=== PATIENT | male | born 1960 | race Caucasian/White ===

== ENCOUNTER 2023-02-13 23:19 | Inpatient (IN) ==
--- NOTE | 2023-02-13 23:26 | Emergency Department Note ---
Impression & Plan Acute non-ST elevation myocardial infarction (NSTEMI) ADMIT ED Provider Note HPI: The patient is a 63-year-old gentleman with history of metastatic prostate cancer, not currently on any chemo or radiation therapy, DNR/DNI CODE STATUS, presents the emergency department with a chief complaint of chest pain. Patient states about 45 minutes prior to arrival he developed substernal chest pain that was relatively severe. Patient arrives via EMS. EKG in the field showed some ST depressions in the lateral leads. Arrival here to the ED the patient is alert, states his chest pain is much improved from previous. Patient is otherwise hemodynamically stable and saturating well on room air on arrival. ROS: - Per HPI *Outpatient medications and allergy history reviewed. *Pertinent external medical records reviewed. PE: General: Alert frail-appearing, cachectic, no acute distress HEENT: Normocephalic, trachea midline Eyes: Extraocular eye movement is intact, no scleral erythema Pulmonary: Clear to auscultation bilaterally, no wheezing Cardio: Regular rate and rhythm GI: Abdomen is soft to palpation : No suprapubic tenderness, Roldan catheter in place MSK: No evidence of trauma or malformation of the extremities, no edema Skin: No evidence of rash Neuro: Alert, no focal deficits Psychiatric: Cooperative phototypesetting equipment monitor: (As interpreted by myself): - An order was placed for continuous cardiac monitoring - Patient was noted to be in sinus rhythm with a rate of 105 EKG #1: (As interpreted by myself): Rate: 124 Rhythm: Sinus tachycardia Intervals: Within normal limits ST changes: No ST elevation, ST depression in lateral leads noted V3 through V6 Time: 2321 EKG #2: (As interpreted by myself): Rate: 109 Rhythm: Sinus tachycardia Intervals: Within normal limits ST changes: No ST elevation, ST depression in the lateral leads noted V3 through V6 slightly improved from previous Time: 2349 Interventions provided in ED: -IV morphine, IV Dilaudid, packed red blood cell transfusion ordered, platelet transfusion ordered, aspirin given in the field via EMS Differential Diagnosis: Bone marrow suppression secondary to metastatic prostate cancer, acute coronary syndrome, pulmonary embolism, pneumothorax, body pain secondary to metastatic disease to the bone, amongst other potential pathologies. Medical Decision Making: Patient presented to the emergency department the chief complaint of chest pain. This is in the setting of underlying metastatic prostate cancer, patient states he is currently on oral morphine at home for pain. [place] Follows locally with a PCP. Patient states that he declined to have any radiation or chemotherapy performed for his prostate cancer and currently is not under any therapy. He states he is DNR/DNI CODE STATUS. EKG in the field showed evidence of some lateral depressions in leads V3 through V6, chest x-ray per my interpretation does not show any obvious widened mediastinum, no pneumothorax. I did discuss the patient's presentation shortly after arrival with on-call interventional cardiology, Dr. Matias, as the patient's symptoms are much improved from previous Dr. Matias recommends initiating heparin drip which was initially ordered. Admission to the hospital and maintaining the patient on panel monitor, repeat EKGs as needed if the patient develops any chest pain and plan will be for cardiology to evaluate the patient in the morning for diagnostic catheterization. I did discuss this with the patient and he is in agreement. Repeat EKG was obtained when the patient was chest pain-free at 2349, this shows improvement in previously noted ST depressions in leads V3 through V6. Troponin did return elevated at 186. Patient complained of some pain in his right elbow, states this is a chronic pain pattern for him. This is why he is on morphine at home. He was given morphine here in the ED and eventually dose of Dilaudid. He states the pain is not in his chest, states it was in his right elbow. X-ray imaging per my interpretation of the right elbow does not show any evidence of any fracture or dislocation. Patient's friend later arrives at the bedside, states that the patient has been suffering from various musculoskeletal pain patterns including in his chest now for several weeks. Patient's lab work unfortunately does show multiple other abnormalities, there is a leukocytosis of 13,000, hemoglobin is low at 5.4, platelet count is also low at 19, patient's urinalysis shows evidence of infection, he was started on IV ceftriaxone and blood cultures were drawn in the ED. Alk phos is also elevated likely consistent with the patient's metastatic disease. Patient was ordered 2 units packed red blood cells as well as platelets for transfusion. Heparin drip was stopped once the hemoglobin result came back. I suspect this is likely related to his cancer as the patient denies any recent bleeding aside from some mild epistaxis. Denies any blood per rectum. Denies any hematemesis. Occult stool test was performed at the bedside and is negative. Patient will be admitted to the hospitalist service with cardiology on consultation. Case was discussed with the on-call hospitalist, Dr. Medina. He was given heparin bolus here in the ED but drip was held following results of hemoglobin and platelet count. Packed red blood cells and platelets ordered and pending transfusion at the time of admission. Patient is in agreement to the above plan he was placed for admission in stable condition. Consultants: Interventional cardiology, Dr. Matias Disposition discussion held by myself with: Patient and friend at the bedside * CRITICAL CARE TIME: ( 65 ) minutes -Management of patient with anemia with hemoglobin less than 7.0 requiring packed red blood cell transfusion in the setting of endorgan damage/ischemia with elevated troponin, I spent at the bedside, discussion with other physicians including interventional cardiology, discussion with hospitalist service and arrangement of admission CODE STATUS: DNR/DNI per discussion with patient. Diagnosis: 1. Non-ST elevation myocardial infarction, acute 2. Anemia, acute 3. Thrombocytopenia, acute 4. Leukocytosis, acute 5. Hyponatremia, mild 6. Metastatic prostate cancer 7. Urinary tract infection, catheter associated Disposition: Admission Clayton Browning DO Emergency Medicine Past Med/Surg History Medical History (Updated 02/14/23 @ 01:57 by Clayton Browning DO) Chronic indwelling Roldan catheter History of Guillain-Thornton syndrome OCCURED SEVERAL YEARS AGO DURING THE TIME THAT PATIENT HAD RESIDED IN [facility]. PT STATES THE EXACT ETIOLOGY IS UNKNOWN BUT BELIEVES IT WAS SECONDARY TO A VIRUS HE HAD JUST PRIOR. PT STATES NO RESIDUAL EFFECTS AT THIS TIME. Surgical History History of surgery PREVIOUS CYST EXCISION History of vasectomy Family History (Updated 01/01/23 @ 09:50 by Irish Barron) Denies family history of Ovarian cancer Prostate cancer Myocardial infarction Breast cancer Lung cancer Colorectal cancer Social History (Updated 01/24/23 @ 12:50 by Deborah Robins LPN) Smoking Status: Former smoker Age Started Using Tobacco: 19; Age Quit Using Tobacco: 39; packs per day: 1; Cigarettes Per Day: 0; Second Hand Exposure: No; Hx Alcohol Use: Yes Alcohol type: beer Hx Substance Use: No Preferred Language: Tajik Communication Ability: Effective Visual Impairment: No Limitations Hearing Ability: Normal Coremaker Bench Required: No Beliefs That Will Affect Care: None marital status: Current Living Situation: Alone current occupational status: retired How many Children do You have: 0 Feels Safe at Home: Yes Physical Activity Frequency: Does not Exercise Seatbelt Use: always Sunscreen Use: Yes Assistive Devices: None Allergies Allergies Allergy/AdvReac Type Severity Reaction Status Date / Time oxycodone [From OxyContin] AdvReac Verified 01/24/23 12:46 Home Meds Home Medications Medication Instructions Recorded Confirmed fentanyl 100 mcg/hr transdermal 1 patch transdermal Q72H 01/01/23 02/13/23 patch buspirone 5 mg tablet 5 mg PO BID 01/24/23 02/13/23 acetaminophen 650 mg rectal 650 mg LA Q4 PRN Fever Or Pain 02/13/23 02/13/23 suppository dexamethasone 2 mg tablet 2 mg PO UD 02/13/23 02/13/23 haloperidol lactate 2 mg/mL oral 1 mg PO Q4 PRN 02/13/23 02/13/23 concentrate nausea/vomiting/agitation hydrocodone 7.5 mg-acetaminophen 1 tab PO Q6 PRN Pain 02/13/23 02/13/23 325 mg tablet hyoscyamine sulfate 0.125 mg tablet 0.125 mg sublingual Q4 PRN 02/13/23 02/13/23 terminal secretions lorazepam 1 mg tablet 0.5 mg PO Q4 PRN 02/13/23 02/13/23 restlessness/insomnia lorazepam 1 mg tablet 2 mg sublingual .Q15 MIN PRN 02/13/23 02/13/23 Seizures morphine concentrate 100 mg/5 mL 10 mg PO . EVERY 1 HOUR PRN 02/13/23 02/13/23 (20 mg/mL) oral solution pain/sob promethazine 12.5 mg tablet 12.5 mg PO Q8 PRN Nausea 02/13/23 02/13/23 Previous Rx's Medication Instructions Recorded dronabinol 2.5 mg capsule (Marinol) 2.5 mg PO BID 30 days #60 caps 01/24/23 Results & Data (ED) Vital Signs Vital Signs - 24 hr 02/13/23 23:23 02/13/23 23:27 02/13/23 23:24 Temperature Temperature Source Oral Pulse Rate 122 H 120 H Pulse Rate [Right] Respiratory Rate 18 Respiratory Effort / Characteristics Non-Labored Spontaneous Respiratory Depth Normal Blood Pressure [Right Arm] Blood Pressure Mean [Right Arm] Blood Pressure Position Sitting Pulse Oximetry 98 96 Oxygen Delivery Method Room Air Room Air Sepsis Recent Fever Within 48 Hours No Sepsis New/Unexplained Change in Mental Status N/A Sepsis Action Taken by Nursing No Action Required 02/13/23 23:35 02/14/23 00:28 Temperature 37.9 C H Temperature Source Oral Pulse Rate Pulse Rate [Right] 113 H 112 H Respiratory Rate 18 18 Respiratory Effort / Characteristics Non-Labored Spontaneous Non-Labored Spontaneous Respiratory Depth Normal Normal Blood Pressure [Right Arm] 139/71 124/60 Blood Pressure Mean [Right Arm] 93 81 Blood Pressure Position Pulse Oximetry 99 98 Oxygen Delivery Method Room Air Room Air Sepsis Recent Fever Within 48 Hours Sepsis New/Unexplained Change in Mental Status Sepsis Action Taken by Nursing Laboratory Data 02/13/23 23:30 02/13/23 23:30 Lab Results 02/13/23 02/13/23 02/13/23 Range/Units 23:30 23:30 23:32 WBC 13.11 H (4.8-10.8) K/ul RBC 1.82 L (4.70-6.10) M/uL Hgb 5.4 L* (14.0-18.0) g/dl Hct 16.6 L* (42.0-52.0) % MCV 91.2 (80.0-100.0) fL MCH 29.7 (25.0-34.0) pg MCHC 32.5 (32.0-36.0) g/dL RDW Std Deviation 60.6 H (36.4-46.3) fL RDW Coeff of Moraima 18.6 H (11.5-14.5) % Plt Count 19 L* (130-400) K/uL Absolute Nucleated RBC 2.84 H (0-0.12) K/uL Nucleated RBC % (auto) 21.7 % Neutrophils % (Manual) 57 % Lymphocytes % (Manual) 32 % Monocytes % (Manual) 3 % Eosinophils % (Manual) 1 % Metamyelocytes % (Man) 3 % Myelocytes % (Man) 5 % Neutrophils # (Manual) 7.47 H (1.40-6.50) K/uL Total Absolute Neuts 7.47 H (1.4-6.5) K/uL Lymphocytes # (Manual) 4.20 H (1.2-3.4) K/uL Total Abs Lymphocytes 4.20 H (1.2-3.4) K/uL Monocytes # (Manual) 0.39 (0.11-0.59) K/uL Eosinophils # (Manual) 0.13 (0-0.50) K/uL Metamyelocytes # (Man) 0.39 H (0-0) K/uL Myelocytes # (Manual) 0.66 H (0-0) K/uL Polychromasia 1+ Tear Drop Cells 1+ PT (9.0-12.0) Seconds INR (0.9-1.1) APTT (21.0-31.0) Seconds PTT Ratio Sodium 130 L (136-145) mmol/L Potassium 3.6 (3.5-5.1) mmol/L Chloride 96 L (98-107) mmol/L Carbon Dioxide 22 (21-32) mmol/L Anion Gap 12 H (3-11) BUN 31 H (6-23) mg/dl Creatinine 1.25 (0.6-1.4) mg/dl Est Cr Clr Drug Dosing 69.4 ml/min Est GFR ( Amer) 70.1 ml/min Est GFR (Non-Af Amer) 60.5 ml/min BUN/Creatinine Ratio 24.8 H (10-20) Glucose 172 H (70-99(Fasting)) mg/dl Calcium 9.4 (8.6-10.3) mg/dl Total Bilirubin 1.5 H (0.2-1.0) mg/dl AST 33 (13-39) U/L ALT 10 (7-52) U/L Alkaline Phosphatase 962 H (34-104) U/L Troponin I High Sens 186.5 H* (0-20) pg/ml Total Protein 6.3 (6.0-8.3) gm/dl Albumin 3.5 (3.4-5.0) gm/dl Globulin 2.8 (2.5-4.0) gm/dl Albumin/Globulin Ratio 1.3 (0.9-2) Lipase 47 (11-82) U/L Urine Color Yellow Urine Appearance Turbid A (Clear) Urine pH 5.0 (4.5-7.5) Ur Specific Rule 1.014 (1.000-1.030) Urine Protein 2+ H (Negative) Urine Glucose (UA) Negative (Negative) Urine Ketones Negative (Negative) Urine Blood 3+ H (Negative) Urine Nitrite Positive A (Negative) Urine Bilirubin Negative (Negative) Urine Urobilinogen Negative (Negative) Ur Leukocyte Esterase 2+ H (Negative) Urine WBC (Auto) >30 H (0-5) /hpf Urine RBC (Auto) 5-10 H (0-4) /hpf U Hyaline Cast (Auto) 1-5 (0-5) /lpf U Epithel Cells (Auto) 0-5 (0-5) /lpf Urine Bacteria (Auto) 3+ H (Negative) Urine Crystals Not Reportable SARS-CoV-2, RNA, NAAT (NEGATIVE) Blood Type Blood Type Recheck Antibody Screen Crossmatch 02/13/23 02/13/23 02/14/23 Range/Units 23:32 Unknown 00:05 WBC (4.8-10.8) K/ul RBC (4.70-6.10) M/uL Hgb (14.0-18.0) g/dl Hct (42.0-52.0) % MCV (80.0-100.0) fL MCH (25.0-34.0) pg MCHC (32.0-36.0) g/dL RDW Std Deviation (36.4-46.3) fL RDW Coeff of Moraima (11.5-14.5) % Plt Count (130-400) K/uL Absolute Nucleated RBC (0-0.12) K/uL Nucleated RBC % (auto) % Neutrophils % (Manual) % Lymphocytes % (Manual) % Monocytes % (Manual) % Eosinophils % (Manual) % Metamyelocytes % (Man) % Myelocytes % (Man) % Neutrophils # (Manual) (1.40-6.50) K/uL Total Absolute Neuts (1.4-6.5) K/uL Lymphocytes # (Manual) (1.2-3.4) K/uL Total Abs Lymphocytes (1.2-3.4) K/uL Monocytes # (Manual) (0.11-0.59) K/uL Eosinophils # (Manual) (0-0.50) K/uL Metamyelocytes # (Man) (0-0) K/uL Myelocytes # (Manual) (0-0) K/uL Polychromasia Tear Drop Cells PT 13.9 H (9.0-12.0) Seconds INR 1.3 H (0.9-1.1) APTT 24.0 (21.0-31.0) Seconds PTT Ratio 0.9 Sodium (136-145) mmol/L Potassium (3.5-5.1) mmol/L Chloride (98-107) mmol/L Carbon Dioxide (21-32) mmol/L Anion Gap (3-11) BUN (6-23) mg/dl Creatinine (0.6-1.4) mg/dl Est Cr Clr Drug Dosing ml/min Est GFR ( Amer) ml/min Est GFR (Non-Af Amer) ml/min BUN/Creatinine Ratio (10-20) Glucose (70-99(Fasting)) mg/dl Calcium (8.6-10.3) mg/dl Total Bilirubin (0.2-1.0) mg/dl AST (13-39) U/L ALT (7-52) U/L Alkaline Phosphatase (34-104) U/L Troponin I High Sens (0-20) pg/ml Total Protein (6.0-8.3) gm/dl Albumin (3.4-5.0) gm/dl Globulin (2.5-4.0) gm/dl Albumin/Globulin Ratio (0.9-2) Lipase (11-82) U/L Urine Color Urine Appearance (Clear) Urine pH (4.5-7.5) Ur Specific Rule (1.000-1.030) Urine Protein (Negative) Urine Glucose (UA) (Negative) Urine Ketones (Negative) Urine Blood (Negative) Urine Nitrite (Negative) Urine Bilirubin (Negative) Urine Urobilinogen (Negative) Ur Leukocyte Esterase (Negative) Urine WBC (Auto) (0-5) /hpf Urine RBC (Auto) (0-4) /hpf U Hyaline Cast (Auto) (0-5) /lpf U Epithel Cells (Auto) (0-5) /lpf Urine Bacteria (Auto) (Negative) Urine Crystals SARS-CoV-2, RNA, NAAT NEGATIVE (NEGATIVE) Blood Type A Positive Blood Type Recheck Antibody Screen NEGATIVE Crossmatch See Detail 02/14/23 Range/Units 01:03 WBC (4.8-10.8) K/ul RBC (4.70-6.10) M/uL Hgb (14.0-18.0) g/dl Hct (42.0-52.0) % MCV (80.0-100.0) fL MCH (25.0-34.0) pg MCHC (32.0-36.0) g/dL RDW Std Deviation (36.4-46.3) fL RDW Coeff of Moraima (11.5-14.5) % Plt Count (130-400) K/uL Absolute Nucleated RBC (0-0.12) K/uL Nucleated RBC % (auto) % Neutrophils % (Manual) % Lymphocytes % (Manual) % Monocytes % (Manual) % Eosinophils % (Manual) % Metamyelocytes % (Man) % Myelocytes % (Man) % Neutrophils # (Manual) (1.40-6.50) K/uL Total Absolute Neuts (1.4-6.5) K/uL Lymphocytes # (Manual) (1.2-3.4) K/uL Total Abs Lymphocytes (1.2-3.4) K/uL Monocytes # (Manual) (0.11-0.59) K/uL Eosinophils # (Manual) (0-0.50) K/uL Metamyelocytes # (Man) (0-0) K/uL Myelocytes # (Manual) (0-0) K/uL Polychromasia Tear Drop Cells PT (9.0-12.0) Seconds INR (0.9-1.1) APTT (21.0-31.0) Seconds PTT Ratio Sodium (136-145) mmol/L Potassium (3.5-5.1) mmol/L Chloride (98-107) mmol/L Carbon Dioxide (21-32) mmol/L Anion Gap (3-11) BUN (6-23) mg/dl Creatinine (0.6-1.4) mg/dl Est Cr Clr Drug Dosing ml/min Est GFR ( Amer) ml/min Est GFR (Non-Af Amer) ml/min BUN/Creatinine Ratio (10-20) Glucose (70-99(Fasting)) mg/dl Calcium (8.6-10.3) mg/dl Total Bilirubin (0.2-1.0) mg/dl AST (13-39) U/L ALT (7-52) U/L Alkaline Phosphatase (34-104) U/L Troponin I High Sens (0-20) pg/ml Total Protein (6.0-8.3) gm/dl Albumin (3.4-5.0) gm/dl Globulin (2.5-4.0) gm/dl Albumin/Globulin Ratio (0.9-2) Lipase (11-82) U/L Urine Color Urine Appearance (Clear) Urine pH (4.5-7.5) Ur Specific Rule (1.000-1.030) Urine Protein (Negative) Urine Glucose (UA) (Negative) Urine Ketones (Negative) Urine Blood (Negative) Urine Nitrite (Negative) Urine Bilirubin (Negative) Urine Urobilinogen (Negative) Ur Leukocyte Esterase (Negative) Urine WBC (Auto) (0-5) /hpf Urine RBC (Auto) (0-4) /hpf U Hyaline Cast (Auto) (0-5) /lpf U Epithel Cells (Auto) (0-5) /lpf Urine Bacteria (Auto) (Negative) Urine Crystals SARS-CoV-2, RNA, NAAT (NEGATIVE) Blood Type Blood Type Recheck A Positive Antibody Screen Crossmatch Administered Medications Discontinued Medications Heparin Sodium (Porcine) (Heparin Sod (Porcine) 1000 Unit/Ml) 5,000 units IV NOW ONE Stop: 02/14/23 00:31 Last Admin: 02/14/23 00:23 Dose: 5,000 units Documented By: CARLOS Co-signed By: LILIAN Heparin Sodium/Dextrose (Heparin Iv Adult Wt-Based Standard With Bolus Protocol) 1 each IV NOW STA; Protocol Stop: 02/14/23 00:06 Last Admin: 02/14/23 00:23 Dose: 1 each Documented By: CARLOS Hydromorphone HCl (Hydromorphone Inj 0.5 Mg/0.5 Ml Syr) 0.5 mg IV NOW STA Stop: 02/14/23 00:36 Last Admin: 02/14/23 00:42 Dose: 0.5 mg Documented By: CARLOS Sodium Chloride (Nss) 500 mls @ 999 mls/hr IV .Q31M ONE Stop: 02/13/23 23:58 Last Infusion: 02/14/23 00:04 Dose: 0 mls/hr Documented By: Admin: 02/13/23 23:33 Dose: 999 mls/hr Documented By: CARLOS Ceftriaxone Sodium (Rocephin) 2,000 mg in 70 mls @ 140 mls/hr IV NOW STA Stop: 02/14/23 00:33 Last Infusion: 02/14/23 00:42 Dose: 0 mls/hr Documented By: Admin: 02/14/23 00:18 Dose: 140 mls/hr Documented By: CARLOS Heparin Sodium/Dextrose (Heparin Sodium/Dextrose) 25,000 units in 500 mls @ 30 mls/hr IV .[id number] [facility]; Protocol Stop: 03/16/23 00:29 Last Titration: 02/14/23 00:51 Dose: 0 units/hr, 0 mls/hr Documented By: CARLOS Co-signed By: GRAYSON Admin: 02/14/23 00:23 Dose: 1,500 units/hr, 30 mls/hr Documented By: CARLOS Co-signed By: LILIAN Sodium Chloride (Nss) 500 mls @ 999 mls/hr IV .Q31M ONE Stop: 02/14/23 01:37 Last Infusion: 02/14/23 01:44 Dose: 0 mls/hr Documented By: Admin: 02/14/23 01:18 Dose: 999 mls/hr Documented By: GRAYSON Morphine Sulfate (Morphine Sulfate 4 Mg/Ml 1 Ml Carp\Vial) 4 mg IV NOW STA Stop: 02/13/23 23:28 Last Admin: 02/13/23 23:33 Dose: 4 mg Documented By: CARLOS Ondansetron HCl (Ondansetron Inj 2 Mg/Ml 2 Ml Vial) 4 mg IV NOW STA Stop: 02/13/23 23:28 Last Admin: 02/13/23 23:33 Dose: 4 mg Documented By: CARLOS Discharge Plan Visit Data Chief Complaint: Chest Pain ED Provider: Clayton Browning Discharge Problem: Acute non-ST elevation myocardial infarction (NSTEMI) Patient Disposition: Admitted As Inpatient Discharge Instructions Interventions: ED Discharge Assessment Last Done: 02/14/23 01:48
[2023-02-13] MEDS ORDERED: ONDANSETRON INJ 2 MG/ML 2 ML VIAL IV STA (23:27)
[2023-02-13] MEDS ORDERED: MoRPHine SULFATE 4 MG/ML 1 ML CARP\\VIAL IV STA (23:27)
[2023-02-13] MEDS ORDERED: SODIUM CHLORIDE 0.9% 500 ML IV ONE (23:28)
[2023-02-14 00:01] LABS: Appearance Urine Turbid (Clear); Bacteria Urine Automated 3+ (Negative); Bilirubin Urine Negative (Negative); Blood Urine 3+ (Negative); Color Urine Yellow; Epithelial Cell Urine Auto 0-5 /lpf (0-5); Glucose Urine UA Negative (Negative); Ketones Urine Negative (Negative); Leukocyte Esterase Urine 2+ (Negative); Nitrite Urine Positive (Negative); Protein Urine 2+ (Negative); Specific Gravity Urine 1.014 (1.000-1.030); Urobilinogen Urine Negative (Negative); WBC Urine Automated >30 /hpf (0-5)
[2023-02-14] MEDS ORDERED: cefTRIAXone SODIUM 2,000 MG/70 ML BAG IV STA (00:04)
[2023-02-14] MEDS ORDERED: Heparin IV Adult Wt-Based Standard WITH Bolus Protocol IV STA (00:05)
[2023-02-14 00:14] LABS: Albumin Globulin Ratio 1.3 (0.9-2); Albumin Level 3.5 gm/dl (3.4-5.0); BUN Creatinine Ratio 24.8 (10-20); Bilirubin,Total 1.5 mg/dl (0.2-1.0); Calcium 9.4 mg/dl (8.6-10.3); Creatinine Clr Calc Pharmacy 69.4 ml/min; Est GFR (African American) 70.1 ml/min; Est GFR (Non-African American) 60.5 ml/min; Globulin 2.8 gm/dl (2.5-4.0); Potassium 3.6 mmol/L (3.5-5.1); Total Protein 6.3 gm/dl (6.0-8.3)
[2023-02-14] MEDS ORDERED: HEPARIN SOD (PORCINE) 1000 UNIT/ML IV ONE ×2 (00:20→00:30)
[2023-02-14] MEDS ORDERED: HEPARIN SODIUM/DEXTROSE 25,000 UNITS/500 ML BAG IV SCH (00:30)
[2023-02-14 00:32] LABS: Troponin I High Sensitivity 186.5 pg/ml (0-20)
[2023-02-14] MEDS ORDERED: HYDROmorphone INJ 0.5 MG/0.5 ML SYR IV STA (00:35)
[2023-02-14 00:40] LABS: Hematocrit (blood only) 16.6 % (42.0-52.0); Hemoglobin 5.4 g/dl (14.0-18.0); Mean Corpuscular Hemoglobin 29.7 pg (25.0-34.0); Mean Corpuscular Hgb Conc 32.5 g/dL (32.0-36.0); Mean Corpuscular Volume 91.2 fL (80.0-100.0); Nucleated RBC # (auto) 2.84 K/uL (0-0.12); Nucleated RBC % (auto) 21.7 %; Platelet Count 19 K/uL (130-400); RDW Coefficient of Variation 18.6 % (11.5-14.5); RDW Standard Deviation 60.6 fL (36.4-46.3); Red Blood Count 1.82 M/uL (4.70-6.10); White Blood Count 13.11 K/ul (4.8-10.8)
[2023-02-14] MEDS ORDERED: SODIUM CHLORIDE 0.9% 250 ML IV PRN ×2 (00:41→16:53)
[2023-02-14 00:47] LABS: INR 1.3 (0.9-1.1); Partial Thromboplastin Ratio 0.9; Prothrombin Time 13.9 Seconds (9.0-12.0)
[2023-02-14 00:56] LABS: ANC (manual) 7.47 K/uL (1.4-6.5); Eosinophils # (manual) 0.13 K/uL (0-0.50); Eosinophils % (manual) 1 %; Lymphocytes % (manual) 32 %; Metamyelocytes # (manual) 0.39 K/uL (0-0); Metamyelocytes % (manual) 3 %; Monocytes # (manual) 0.39 K/uL (0.11-0.59); Monocytes % (manual) 3 %; Myelocytes # (manual) 0.66 K/uL (0-0); Myelocytes % (manual) 5 %; Neutrophils # (manual) 7.47 K/uL (1.40-6.50); Neutrophils % (manual) 57 %; Polychromasia 1+; Tear Drop Cells 1+
[2023-02-14] MEDS ORDERED: SODIUM CHLORIDE 0.9% 500 ML IV ONE (01:07)
--- NOTE | 2023-02-14 01:29 | History & Physical Report ---
Date of Service February 14, 2023 Assessment & Plan (1) Symptomatic anemia: (2) NSTEMI (non-ST elevated myocardial infarction): (3) Urinary obstruction: (4) Chronic indwelling Roldan catheter: (5) Anxiety: (6) Prostate cancer metastatic to multiple sites: (7) Hyperglycemia: (8) Thrombocytopenia: Plan Symptomatic anemia- Hemoccult negative Likely secondary to chemotherapy To receive 2 units PRBCs from the ED Repeat laboratories 1 hour after that Likely causing supply demand issues with leading to an NSTEMI NSTEMI- The patient will be admitted to telemetry for serial cardiac enzymes, serial EKG's, cardiac rhythm monitoring and a 2-D echocardiogram with Dopplers. Troponin 186.5 on admission Primary treatment is to transfuse his hemoglobin of 5.4 Thrombocytopenia- Platelets 19 on admission We will transfuse 1 unit of platelets after hemoglobin 2 units are completed Follow serial laboratories Not a candidate for anticoagulation for above NSTEMI at this time Urinary tract infection/chronic indwelling Roldan catheter/bladder outlet obstruction- Follow urine culture and sensitivity Continue ceftriaxone 2 g IV daily begun in the ED Metastatic prostate cancer to multiple sites- Following with [facility] hospice at this time Decreased appetite- Continue Marinol History of Present Illness Chief Complaint: The patient presents to the emergency department with complaint of substernal chest pain that began about 45 minutes prior to arrival to the emergency department Primary Care Provider: Sal Hill DO The patient is a 63-year-old male with a past medical history including metastatic prostate cancer, anxiety, chronic pain syndrome, agitation, chronic indwelling Roldan catheter due to urinary obstruction and decreased appetite. Patient reports that he had intermittent right elbow pain for months, and has had a negative work-up to this point. The substernal chest pain he developed just prior to arrival, was was severe, and did get significant improvement with treatment in ED. Significant laboratories: WBC 13.1, hemoglobin 5.4, hematocrit 16.6, platelets 19, sodium 130, creatinine 1.25, glucose 172, INR 1.3, total bilirubin 1.5, troponin 186.5, alkaline phosphatase 962. Urinalysis was positive for infection COVID-19 testing was negative Hemoccult stools negative in the ED Allergies Allergy/AdvReac Type Severity Reaction Status Date / Time oxycodone [From OxyContin] AdvReac Verified 01/24/23 12:46 Home Medications Medication Instructions Recorded Confirmed Type fentanyl 100 mcg/hr transdermal 1 patch transdermal Q72H 01/01/23 02/13/23 History patch buspirone 5 mg tablet 5 mg PO BID 01/24/23 02/13/23 History dronabinol 2.5 mg capsule (Marinol) 2.5 mg PO BID 30 days #60 caps 01/24/23 02/13/23 Rx acetaminophen 650 mg rectal 650 mg HI Q4 PRN Fever Or Pain 02/13/23 02/13/23 History suppository dexamethasone 2 mg tablet 2 mg PO UD 02/13/23 02/13/23 History haloperidol lactate 2 mg/mL oral 1 mg PO Q4 PRN 02/13/23 02/13/23 History concentrate nausea/vomiting/agitation hydrocodone 7.5 mg-acetaminophen 1 tab PO Q6 PRN Pain 02/13/23 02/13/23 History 325 mg tablet hyoscyamine sulfate 0.125 mg tablet 0.125 mg sublingual Q4 PRN 02/13/23 02/13/23 History terminal secretions lorazepam 1 mg tablet 0.5 mg PO Q4 PRN 02/13/23 02/13/23 History restlessness/insomnia lorazepam 1 mg tablet 2 mg sublingual .Q15 MIN PRN 02/13/23 02/13/23 History Seizures morphine concentrate 100 mg/5 mL 10 mg PO . EVERY 1 HOUR PRN 02/13/23 02/13/23 History (20 mg/mL) oral solution pain/sob promethazine 12.5 mg tablet 12.5 mg PO Q8 PRN Nausea 02/13/23 02/13/23 History Past Med/Surg History Medical History (Updated 02/14/23 @ 01:47 by Sai Mcneill MD) Chronic indwelling Roldan catheter History of Guillain-Rosston syndrome OCCURED SEVERAL YEARS AGO DURING THE TIME THAT PATIENT HAD RESIDED IN [facility]. PT STATES THE EXACT ETIOLOGY IS UNKNOWN BUT BELIEVES IT WAS SECONDARY TO A VIRUS HE HAD JUST PRIOR. PT STATES NO RESIDUAL EFFECTS AT THIS TIME. Surgical History History of surgery PREVIOUS CYST EXCISION History of vasectomy Family History (Updated 01/01/23 @ 09:50 by Irish Barron) Denies family history of Ovarian cancer Prostate cancer Myocardial infarction Breast cancer Lung cancer Colorectal cancer Social History (Updated 01/24/23 @ 12:50 by Deborah Robins LPN) Smoking Status: Former smoker Age Started Using Tobacco: 19; Age Quit Using Tobacco: 39; packs per day: 1; Cigarettes Per Day: 0; Second Hand Exposure: No; Hx Alcohol Use: Yes Alcohol type: beer Hx Substance Use: No Preferred Language: [place] Communication Ability: Effective Visual Impairment: No Limitations Hearing Ability: Normal Collar Baster Required: No Beliefs That Will Affect Care: None marital status: Current Living Situation: Alone current occupational status: retired How many Children do You have: 0 Feels Safe at Home: Yes Physical Activity Frequency: Does not Exercise Seatbelt Use: always Sunscreen Use: Yes Assistive Devices: None Review of Systems Review of Systems: The patient denies palpitations, cough, lower extremity swelling, sore throat, fevers, chills, sweats, nausea, vomiting, diarrhea , constipation, abdominal pain, pelvic pain, blood in urine or stool, lightheadedness, dizziness, headache, memory loss, loss of consciousness, abnormal bruising or bleeding, focal weakness, numbness or tingling in arms or legs, generalized arthralgias or myalgias, back or neck pain, or night sweats. The review of systems is otherwise negative other than for that already noted above, and at least 10 systems have been reviewed. Physical Exam Physical Exam: The patient is awake, alert and oriented 3, well developed and well nourished, normocephalic and atraumatic, lying in bed and in no acute distress. HEENT--PERRL, EOMI, mucous membranes and oropharynx dry. Neck--supple. No JVD. No bruits. Thyroid normal, trachea midline, no ad enopathy. Heart--normal S1 and S2. No murmurs, rubs or gallops. Lungs--clear bilaterally, no respiratory distress, no accessory muscle use. Abdomen--normal bowel sounds and soft. Nontender. Nondistended Extremities--no cyanosis or clubbing. No edema. Dermatologic--normal skin turgor, normal color, no abnormal lymph nodes, no rash. Neurologic--cranial nerves II through XII grossly intact. Rheumatologic--normal range of motion. Psychiatric--normal affect. Results & Data Results & Data Vital Signs (Past 12 Hours) Vital Signs Temp Pulse Pulse Resp BP Pulse Ox O2 Del Method 02/14/23 00:28 112 H 18 124/60 98 Room Air 02/13/23 23:35 37.9 C H 113 H 18 139/71 99 Room Air 02/13/23 23:24 120 H 02/13/23 23:27 96 Room Air 02/13/23 23:23 122 H 18 98 Room Air Laboratory Results Laboratory Results WBC 13.11 K/ul (4.8-10.8) H 02/13/23 23:30 RBC 1.82 M/uL (4.70-6.10) L 02/13/23 23:30 Hgb 5.4 g/dl (14.0-18.0) L* 02/13/23 23:30 Hct 16.6 % (42.0-52.0) L* 02/13/23 23:30 MCV 91.2 fL (80.0-100.0) 02/13/23 23:30 MCH 29.7 pg (25.0-34.0) 02/13/23 23:30 MCHC 32.5 g/dL (32.0-36.0) 02/13/23 23:30 RDW Std Deviation 60.6 fL (36.4-46.3) H 02/13/23 23:30 RDW Coeff of Moraima 18.6 % (11.5-14.5) H 02/13/23 23:30 Plt Count 19 K/uL (130-400) L* 02/13/23 23:30 Absolute Nucleated RBC 2.84 K/uL (0-0.12) H 02/13/23 23:30 Nucleated RBC % (auto) 21.7 % 02/13/23 23:30 Neutrophils % (Manual) 57 % 02/13/23 23:30 Lymphocytes % (Manual) 32 % 02/13/23 23:30 Monocytes % (Manual) 3 % 02/13/23 23:30 Eosinophils % (Manual) 1 % 02/13/23 23:30 Metamyelocytes % (Man) 3 % 02/13/23 23:30 Myelocytes % (Man) 5 % 02/13/23 23:30 Neutrophils # (Manual) 7.47 K/uL (1.40-6.50) H 02/13/23 23:30 Total Absolute Neuts 7.47 K/uL (1.4-6.5) H 02/13/23 23:30 Lymphocytes # (Manual) 4.20 K/uL (1.2-3.4) H 02/13/23 23:30 Total Abs Lymphocytes 4.20 K/uL (1.2-3.4) H 02/13/23 23:30 Monocytes # (Manual) 0.39 K/uL (0.11-0.59) 02/13/23 23:30 Eosinophils # (Manual) 0.13 K/uL (0-0.50) 02/13/23 23:30 Metamyelocytes # (Man) 0.39 K/uL (0-0) H 02/13/23 23:30 Myelocytes # (Manual) 0.66 K/uL (0-0) H 02/13/23 23:30 Polychromasia 1+ 02/13/23 23:30 Tear Drop Cells 1+ 02/13/23 23:30 PT 13.9 Seconds (9.0-12.0) H 02/13/23 23:32 INR 1.3 (0.9-1.1) H 02/13/23 23:32 APTT 24.0 Seconds (21.0-31.0) 02/13/23 23:32 PTT Ratio 0.9 02/13/23 23:32 Sodium 130 mmol/L (136-145) L 02/13/23 23:30 Potassium 3.6 mmol/L (3.5-5.1) 02/13/23 23:30 Chloride 96 mmol/L (98-107) L 02/13/23 23:30 Carbon Dioxide 22 mmol/L (21-32) 02/13/23 23:30 Anion Gap 12 (3-11) H 02/13/23 23:30 BUN 31 mg/dl (6-23) H 02/13/23 23:30 Creatinine 1.25 mg/dl (0.6-1.4) 02/13/23 23:30 Est Cr Clr Drug Dosing 69.4 ml/min 02/13/23 23:30 Est GFR ( Amer) 70.1 ml/min 02/13/23 23:30 Est GFR (Non-Af Amer) 60.5 ml/min 02/13/23 23:30 BUN/Creatinine Ratio 24.8 (10-20) H 02/13/23 23:30 Glucose 172 mg/dl (70-99(Fasting)) H 02/13/23 23:30 Calcium 9.4 mg/dl (8.6-10.3) 02/13/23 23:30 Total Bilirubin 1.5 mg/dl (0.2-1.0) H 02/13/23 23:30 AST 33 U/L (13-39) 02/13/23 23:30 ALT 10 U/L (7-52) 02/13/23 23:30 Alkaline Phosphatase 962 U/L (34-104) H 02/13/23 23:30 Troponin I High Sens 186.5 pg/ml (0-20) H* 02/13/23 23: Total Protein 6.3 gm/dl (6.0-8.3) 02/13/23 23: Albumin 3.5 gm/dl (3.4-5.0) 02/13/23 23: Globulin 2.8 gm/dl (2.5-4.0) 02/13/23 23: Albumin/Globulin Ratio 1.3 (0.9-2) 02/13/23 23: Lipase 47 U/L (11-82) 02/13/23 23:30 Urine Color Yellow 02/13/23 23:32 Urine Appearance Turbid (Clear) A 02/13/23 23: Urine pH 5.0 (4.5-7.5) 02/13/23 23:32 Ur Specific [place] 1.014 (1.000-1.030) 02/13/23 23: Urine Protein 2+ (Negative) H 02/13/23 23:32 Urine Glucose (UA) Negative (Negative) 02/13/23 23: Urine Ketones Negative (Negative) 02/13/23 23: Urine Blood 3+ (Negative) H 02/13/23 23: Urine Nitrite Positive (Negative) A 02/13/23 23:32 Urine Bilirubin Negative (Negative) 02/13/23 23: Urine Urobilinogen Negative (Negative) 02/13/23 23:32 Ur Leukocyte Esterase 2+ (Negative) H 02/13/23 23:32 Urine WBC (Auto) >30 /hpf (0-5) H 02/13/23 23:32 Urine RBC (Auto) 5-10 /hpf (0-4) H 02/13/23 23:32 U Hyaline Cast (Auto) 1-5 /lpf (0-5) 02/13/23 23:32 U Epithel Cells (Auto) 0-5 /lpf (0-5) 02/13/23 23:32 Urine Bacteria (Auto) 3+ (Negative) H 02/13/23 23:32 Urine Crystals Not Reportable 02/13/23 23:32 SARS-CoV-2, RNA, NAAT NEGATIVE (NEGATIVE) 02/13/23 Unknown Blood Type A Positive 02/14/23 00:05 Blood Type Recheck A Positive 02/14/23 01:03 Antibody Screen NEGATIVE 02/14/23 00:05 Crossmatch See Detail 02/14/23 00:05 Code Status & VTE Plan Code Status DNR/DNI VTE Prophylaxis Plan VTE Prophylaxis will be ordered: Yes PG Care Time/CCT Total # of Minutes Spent Total Time Spent with Patient: Total time spent is greater than 50% in coordination of care (as documented) at patient's floor/unit and/or counseling patient: Coding Level of Care Code 84443 INT INP/OBS CARE 3/75MIN Diagnoses Symptomatic anemia D64.9 NSTEMI (non-ST elevated myocardial infarction) I21.4 Urinary obstruction N13.9 Chronic indwelling Roldan catheter Z97.8 Anxiety F41.9 Prostate cancer metastatic to multiple sites C61 Hyperglycemia R73.9 Thrombocytopenia D69.6
[2023-02-14] MEDS ORDERED: GLUCOSE 40% GEL 15 GM TUBE PO PRN (01:49)
[2023-02-14] MEDS ORDERED: DEXTROSE 50% 50 ML SYRINGE IV PRN (01:49)
[2023-02-14] MEDS ORDERED: LORazepam 1 MG TAB SL PRN (01:49)
[2023-02-14] MEDS ORDERED: GLUCAGON FOR INJ 1 MG VIAL SQ PRN (01:49)
[2023-02-14] MEDS ORDERED: ACETAMINOPHEN 325 MG TAB PO PRN (01:49)
[2023-02-14] MEDS ORDERED: HYDROCODONE/ACETAMINOPHEN 7.5/325MG TAB PO PRN (01:49)
[2023-02-14] MEDS ORDERED: PROMETHAZINE HCL 25 MG TAB PO PRN (01:49)
[2023-02-14] MEDS ORDERED: CARBOHYDRATES FOR HYPOGLYCEMIA PO PRN (01:49)
[2023-02-14] MEDS ORDERED: ONDANSETRON INJ 2 MG/ML 2 ML VIAL IV PRN (01:49)
[2023-02-14] MEDS ORDERED: HYOSCYAMINE SULFATE 0.125 MG TAB SL PRN (01:49)
[2023-02-14] MEDS ORDERED: GLUCOSE 10 TAB/TUBE PO PRN (01:49)
[2023-02-14] MEDS ORDERED: HALOPERIDOL ORAL SOLN 2 MG/ML PO PRN (01:56)
[2023-02-14] MEDS: MoRPHine SULFATE 10 MG/0.5 ML UDP PO PRN ×6 (03:38→23:09)
--- NOTE | 2023-02-14 07:15 | XRay Report ---
XR chest 1V portable CLINICAL HISTORY: Chest pain, nonspecific TECHNIQUE: Single frontal radiograph of the chest was obtained. Comparison: Comparison is made to chest radiograph 07/28/2015 FINDINGS: No lines and tubes are seen. The cardiomediastinal silhouette is normal. Faint bibasilar airspace opa cities are seen. No evidence of pleural effusion or pneumothorax. IMPRESSION: Faint bibasilar airspace opacities which may represent atelectasis, pneumonia, and/or aspiration. ACT 112: Negative or not required by law. Electronically signed by: Vidal Salguero M.D. 02/14/2023 7:13 AM
[2023-02-14] MEDS ORDERED: INSULIN ASPART PER UNIT CHARGE SC SCH (07:30)
--- NOTE | 2023-02-14 07:57 | XRay Report ---
XR elbow RT min 3V routine CLINICAL HISTORY: pain, no trauma TECHNIQUE: 3 views of the right elbow were obtained. Comparison: None available at the time of this dictation. FINDINGS: There is no evidence of an acute fracture. Degenerative changes are seen in the elbow joint. There is no prominence of the anterior or posterior fat pads to suggest an effusion. No soft tissue abnormali ty is seen. IMPRESSION: No evidence of acute osseous injury. ACT 112: Negative or not required by law. Electronically signed by: Vidal Salguero M.D. 02/14/2023 7:56 AM
[2023-02-14] MEDS ORDERED: CALCIUM CARBONATE 500 MG CHEWABLE TAB PO PRN (09:15)
[2023-02-14] MEDS: fentaNYL 100 MCG/HR TDSY TD SCH (09:24)
[2023-02-14] MEDS: busPIRone 5 MG TAB PO SCH ×2 (09:26→20:01)
[2023-02-14] MEDS: CHECK fentaNYL PATCH PLACEMENT SCH ×2 (09:26→15:34)
[2023-02-14 09:31] LABS: Estimated Average Glucose 111 mg/dl; Hemoglobin A1C 5.5 % (4.5-5.6)
--- NOTE | 2023-02-14 10:27 | Cardiology Consultation ---
Date of Consultation February 14, 2023 Assessment & Plan (1) NSTEMI (non-ST elevated myocardial infarction): (2) Chest pain: (3) Symptomatic anemia: Plan ASSESSMENT/PLAN: 1. NSTEMI: Elevated troponin likely due to demand ischemia in the setting of profound anemia. Chest pain concerning for angina. Given profound thrombocytopenia and anemia, recommend correcting blood counts. No aspirin due to thrombocytopenia. Risk factor modification considered, however given stage IV cancer (declines treatment) and hospice care, statin therapy not likely to add benefit. If has symptoms concerning for angina after her hemoglobin corrected, would consider beta-bo and/or nitrate therapy. He would like to pursue echo. Trend troponin until peak. No heparin gtt given anemia/thrombocytopenia and the fact that this does not likely represent acute coronary syndrome. Cannot exclude underlying CAD. 2. Chest pain: Concerning for angina in the setting of profound anemia. Addressing profound anemia will likely improve/resolve chest discomfort. 3. Anemia/thrombocytopenia: As per primary hospitalist service. 4. Metastatic prostate cancer: As per primary service. He acknowledges that he has declined further treatment and is on home hospice. 5. Disposition: Please call with any further questions or concerns. Patient care communicated with Dr. Ayala of the primary hospitalist service. Highly complex medical issues. Thank you for allowing me to participate in the care of your patient. Please call for any other questions or concerns. Sincerely, Charles Turner M.D. History of Present Illness Reason for Consultation: "CP, NSTEMI" Requesting Physician: Clayton Browning Attending Physician: Mandy Ayala MD History of Present Illness Mr. Martinez is a very pleasant 63-year-old gentleman with history significant for stage IV prostate adenocarcinoma on hospice and borderline diabetes. He was admitted on 02/14/2023 with chest discomfort, confusion, other chronic pain, and profound anemia with a hemoglobin of 5.4 and platelet count of 19,000. His initial high sensitivity troponin was 186. He has been experiencing left-sided chest discomfort intermittently for the past month. It occurs even at rest and typically resolves within 3 to 5 minutes of morphine, but on occasion spontaneously. He is on morphine at home for pathologic fractures involving his vertebrae and ribs. He has chronic right shoulder and right elbow pain. In the emergency department, he was noted to have anterior ST depressions initially which improved with repeat ECG. Chest pain has subsided and has not recurred since receiving some PRBC transfusion. With the chest discomfort, there is associated nausea and shortness of breath but no diaphoresis. Exercise tolerance has dwindled over the past few months. A friend was present at the bedside and states that he was confused for the past 4 to 5 days. Urine has been dark over the past month and his [place]. He has noted some blood in his stool and had epistaxis over the past month. Chronically, poor appetite with chronic nausea. He states that he is sedentary. He is receiving hospice care at home through [facility]. He recalls being diagnosed with borderline diabetes when he was seen by his PCP in [place] and was placed on metformin and a statin therapy. These medications were discontinued following biopsy and found to have metastatic cancer. His goal is to improve his quality of life. He would like to receive care while hospitalized, with the hope of being able to enjoy his life when discharged. He denies orthopnea, syncope, palpitations, edema. He recalls that his last set of labs prior to this hospital stay was in November in [place]. Review of systems: As above. Review of systems otherwise negative/unremarkable. Family history: No known premature CAD. Social history: Quit smoking at the age of 39 after approximately [id number]. Denies alcohol or drug abuse. . No children. Originally from [place] but has lived greater than 10 years in [place]. Recently moved to [place] in 2022. He is currently staying with an elderly friend (80s). A friend accompanied him at the bedside. Allergies Allergy/AdvReac Type Severity Reaction Status Date / Time oxycodone [From OxyContin] AdvReac Verified 01/24/23 12:46 Home Medications Medication Instructions Recorded Confirmed Type fentanyl 100 mcg/hr transdermal 1 patch transdermal Q72H 01/01/23 02/13/23 History patch buspirone 5 mg tablet 5 mg PO BID 01/24/23 02/13/23 History dronabinol 2.5 mg capsule (Marinol) 2.5 mg PO BID 30 days #60 caps 01/24/23 02/13/23 Rx acetaminophen 650 mg rectal 650 mg DC Q4 PRN Fever Or Pain 02/13/23 02/13/23 History suppository dexamethasone 2 mg tablet 2 mg PO UD 02/13/23 02/13/23 History haloperidol lactate 2 mg/mL oral 1 mg PO Q4 PRN 02/13/23 02/13/23 History concentrate nausea/vomiting/agitation hydrocodone 7.5 mg-acetaminophen 1 tab PO Q6 PRN Pain 02/13/23 02/13/23 History 325 mg tablet hyoscyamine sulfate 0.125 mg tablet 0.125 mg sublingual Q4 PRN 02/13/23 02/13/23 History terminal secretions lorazepam 1 mg tablet 0.5 mg PO Q4 PRN 02/13/23 02/13/23 History restlessness/insomnia lorazepam 1 mg tablet 2 mg sublingual .Q15 MIN PRN 02/13/23 02/13/23 History Seizures morphine concentrate 100 mg/5 mL 10 mg PO . EVERY 1 HOUR PRN 02/13/23 02/13/23 History (20 mg/mL) oral solution pain/sob promethazine 12.5 mg tablet 12.5 mg PO Q8 PRN Nausea 02/13/23 02/13/23 History Patient History Medical History (Updated 02/14/23 @ 10:48 by Florentino Turner MD) Chronic indwelling Roldan catheter History of Guillain-Lamar syndrome OCCURED SEVERAL YEARS AGO DURING THE TIME THAT PATIENT HAD RESIDED IN [facility]. PT STATES THE EXACT ETIOLOGY IS UNKNOWN BUT BELIEVES IT WAS SECONDARY TO A VIRUS HE HAD JUST PRIOR. PT STATES NO RESIDUAL EFFECTS AT THIS TIME. Hyperglycemia Prostate cancer metastatic to multiple sites Symptomatic anemia Thrombocytopenia Urinary obstruction Surgical History History of surgery PREVIOUS CYST EXCISION History of vasectomy Family History (Updated 01/01/23 @ 09:50 by Irish Barron) Denies family history of Ovarian cancer Prostate cancer Myocardial infarction Breast cancer Lung cancer Colorectal cancer Social History (Updated 01/24/23 @ 12:50 by Deborah Robins LPN) Smoking Status: Former smoker Age Started Using Tobacco: 19; Age Quit Using Tobacco: 39; packs per day: 1; Cigarettes Per Day: 0; Second Hand Exposure: No; Do You Dip or Chew Tobacco: No; Hx Alcohol Use: No Hx Substance Use: No Preferred Language: Eritrean Communication Ability: Effective Visual Impairment: No Limitations Hearing Ability: Normal Receptionist Scheduler Required: No Beliefs That Will Affect Care: None marital status: Current Living Situation: Alone current occupational status: retired How many Children do You have: 0 Feels Safe at Home: Yes Safety Concerns: Feels Safe At This Time Physical Activity Frequency: Does not Exercise Seatbelt Use: always Sunscreen Use: Yes Assistive Devices: Cane Physical Exam Physical Exam: Gen.: No acute distress. Alert. HEENT: Anicteric sclera. Neck: Mild JVD. Right carotid bruit. Normal carotid upstrokes bilaterally. Cardiac: PMI was nondisplaced. No ventricular heave. Regular. Normal S1-S2. 1/6 systolic ejection murmur. No rubs or gallops. Pulmonary: Clear to auscultation bilaterally without wheezes, rales, or rhonchi. Abdomen: Soft, nontender, nondistended, with normoactive bowel sounds. No bruits noted. Extremities: 2+ radial pulses bilaterally. 2+ posterior tibialis pulses bilaterally. No edema or cyanosis. Psychiatric: Affect appears appropriate. Results & Data Vital Signs (Past 12 Hours) Vital Signs Temp Pulse Pulse Resp BP BP Pulse Ox 02/14/23 08:26 36.4 C L 99 H 20 122/76 97 02/14/23 08:14 36.1 C L 93 H 20 128/73 97 02/14/23 06:47 36.1 C L 97 H 20 128/73 96 02/14/23 07:55 36.3 C L 101 H 18 125/76 94 02/14/23 06:32 36.4 C L 101 H 20 127/64 97 02/14/23 05:00 02/14/23 06:02 36.8 C 96 H 18 127/78 96 02/14/23 06:02 36.8 C 96 H 18 127/78 96 02/14/23 06:07 36.8 C 96 H 18 127/78 96 02/14/23 05:47 36.3 C L 90 20 134/75 97 02/14/23 05:31 36.2 C L 93 H 18 104/67 98 02/14/23 05:10 37 C 92 H 18 104/66 97 02/14/23 04:50 37 C 92 H 18 104/66 97 02/14/23 04:50 37.1 C 97 H 20 119/69 97 02/14/23 04:45 37.1 C 97 H 18 119/69 97 02/14/23 04:12 98 02/14/23 03:55 36.9 C 103 H 16 118/80 96 02/14/23 03:25 36.7 C 101 H 18 117/73 95 02/14/23 03:10 36.9 C 106 H 17 116/65 97 02/14/23 02:53 36.9 C 98 H 18 106/64 98 02/14/23 00:28 112 H 18 124/60 98 02/13/23 23:35 37.9 C H 113 H 18 139/71 99 02/13/23 23:24 120 H 02/13/23 23:27 96 02/13/23 23:23 122 H 18 98 O2 Del Method 02/14/23 08:26 Room Air 02/14/23 08:14 02/14/23 06:47 02/14/23 07:55 02/14/23 06:32 02/14/23 05:00 Room Air 02/14/23 06:02 02/14/23 06:02 02/14/23 06:07 02/14/23 05:47 02/14/23 05:31 02/14/23 05:10 02/14/23 04:50 02/14/23 04:50 Room Air 02/14/23 04:45 02/14/23 04:12 Room Air 02/14/23 03:55 02/14/23 03:25 02/14/23 03:10 02/14/23 02:53 02/14/23 00:28 Room Air 02/13/23 23:35 Room Air 02/13/23 23:24 02/13/23 23:27 Room Air 02/13/23 23:23 Room Air Laboratory Results Laboratory Results - last 24 hr 02/13/23 02/13/23 02/13/23 23:30 23:30 23:32 WBC 13.11 H RBC 1.82 L Hgb 5.4 L* Hct 16.6 L* MCV 91.2 MCH 29.7 MCHC 32.5 RDW Std Deviation 60.6 H RDW Coeff of Moraima 18.6 H Plt Count 19 L* Absolute Nucleated RBC 2.84 H Nucleated RBC % (auto) 21.7 Neutrophils % (Manual) 57 Lymphocytes % (Manual) 32 Monocytes % (Manual) 3 Eosinophils % (Manual) 1 Metamyelocytes % (Man) 3 Myelocytes % (Man) 5 Neutrophils # (Manual) 7.47 H Total Absolute Neuts 7.47 H Lymphocytes # (Manual) 4.20 H Total Abs Lymphocytes 4.20 H Monocytes # (Manual) 0.39 Eosinophils # (Manual) 0.13 Metamyelocytes # (Man) 0.39 H Myelocytes # (Manual) 0.66 H Blood Smear Review Polychromasia 1+ Tear Drop Cells 1+ PT INR APTT PTT Ratio Sodium 130 L Potassium 3.6 Chloride 96 L Carbon Dioxide 22 Anion Gap 12 H BUN 31 H Creatinine 1.25 Est Cr Clr Drug Dosing 69.4 Est GFR ( Amer) 70.1 Est GFR (Non-Af Amer) 60.5 BUN/Creatinine Ratio 24.8 H Glucose 172 H POC Glucose Calcium 9.4 Total Bilirubin 1.5 H AST 33 ALT 10 Alkaline Phosphatase 962 H Troponin I High Sens 186.5 H* Total Protein 6.3 Albumin 3.5 Globulin 2.8 Albumin/Globulin Ratio 1.3 Lipase 47 Urine Color Yellow Urine Appearance Turbid A Urine pH 5.0 Ur Specific [place] 1.014 Urine Protein 2+ H Urine Glucose (UA) Negative Urine Ketones Negative Urine Blood 3+ H Urine Nitrite Positive A Urine Bilirubin Negative Urine Urobilinogen Negative Ur Leukocyte Esterase 2+ H Urine WBC (Auto) >30 H Urine RBC (Auto) 5-10 H U Hyaline Cast (Auto) 1-5 U Epithel Cells (Auto) 0-5 Urine Bacteria (Auto) 3+ H Urine Crystals Not Reportable SARS-CoV-2, RNA, NAAT Blood Type Blood Type Recheck Antibody Screen Crossmatch 02/13/23 02/13/23 02/14/23 23:32 Unknown 00:05 WBC RBC Hgb Hct MCV MCH MCHC RDW Std Deviation RDW Coeff of Moraima Plt Count Absolute Nucleated RBC Nucleated RBC % (auto) Neutrophils % (Manual) Lymphocytes % (Manual) Monocytes % (Manual) Eosinophils % (Manual) Metamyelocytes % (Man) Myelocytes % (Man) Neutrophils # (Manual) Total Absolute Neuts Lymphocytes # (Manual) Total Abs Lymphocytes Monocytes # (Manual) Eosinophils # (Manual) Metamyelocytes # (Man) Myelocytes # (Manual) Blood Smear Review Polychromasia Tear Drop Cells PT 13.9 H INR 1.3 H APTT 24.0 PTT Ratio 0.9 Sodium Potassium Chloride Carbon Dioxide Anion Gap BUN Creatinine Est Cr Clr Drug Dosing Est GFR ( Amer) Est GFR (Non-Af Amer) BUN/Creatinine Ratio Glucose POC Glucose Calcium Total Bilirubin AST ALT Alkaline Phosphatase Troponin I High Sens Total Protein Albumin Globulin Albumin/Globulin Ratio Lipase Urine Color Urine Appearance Urine pH Ur Specific [place] Urine Protein Urine Glucose (UA) Urine Ketones Urine Blood Urine Nitrite Urine Bilirubin Urine Urobilinogen Ur Leukocyte Esterase Urine WBC (Auto) Urine RBC (Auto) U Hyaline Cast (Auto) U Epithel Cells (Auto) Urine Bacteria (Auto) Urine Crystals SARS-CoV-2, RNA, NAAT NEGATIVE Blood Type A Positive Blood Type Recheck Antibody Screen NEGATIVE Crossmatch See Detail 02/14/23 02/14/23 01:03 09:21 WBC RBC Hgb Hct MCV MCH MCHC RDW Std Deviation RDW Coeff of Moraima Plt Count Absolute Nucleated RBC Nucleated RBC % (auto) Neutrophils % (Manual) Lymphocytes % (Manual) Monocytes % (Manual) Eosinophils % (Manual) Metamyelocytes % (Man) Myelocytes % (Man) Neutrophils # (Manual) Total Absolute Neuts Lymphocytes # (Manual) Total Abs Lymphocytes Monocytes # (Manual) Eosinophils # (Manual) Metamyelocytes # (Man) Myelocytes # (Manual) Blood Smear Review Polychromasia Tear Drop Cells PT INR APTT PTT Ratio Sodium Potassium Chloride Carbon Dioxide Anion Gap BUN Creatinine Est Cr Clr Drug Dosing Est GFR ( Amer) Est GFR (Non-Af Amer) BUN/Creatinine Ratio Glucose POC Glucose 184 H Calcium Total Bilirubin AST ALT Alkaline Phosphatase Troponin I High Sens Total Protein Albumin Globulin Albumin/Globulin Ratio Lipase Urine Color Urine Appearance Urine pH Ur Specific [place] Urine Protein Urine Glucose (UA) Urine Ketones Urine Blood Urine Nitrite Urine Bilirubin Urine Urobilinogen Ur Leukocyte Esterase Urine WBC (Auto) Urine RBC (Auto) U Hyaline Cast (Auto) U Epithel Cells (Auto) Urine Bacteria (Auto) Urine Crystals SARS-CoV-2, RNA, NAAT Blood Type Blood Type Recheck A Positive Antibody Screen Crossmatch Diagnostic Findings ECGs personally reviewed: ECG 02/13/2023 at 2321: Sinus tachycardia [address] depression. Mild inferior ST depression. ECG 02/13/2023 at 2349: Sinus tachycardia [address] depression improved. Nonspecific ST abnormality inferior leads. History and physical report and emergency room visit report reviewed. Labs reviewed and notable for significant anemia and thrombocytopenia. Stable renal function. Hyponatremia. Chest x-ray image personally reviewed: No infiltrate. No pleural effusion noted. Per radiology, faint bibasilar airspace opacities. Telemetry personally reviewed: Sinus rhythm with occasional PVCs. No arrhythmia noted. Medications Administered Current Inpatient Medications Acetaminophen (Acetaminophen 325 Mg Tab) 650 mg PO Q4H PRN PRN Reason: Pain or Fever Stop: 03/16/23 01:48 Hydrocodone Bitart/Acetaminophen (Hydrocodone/Acetaminophen 7.5/325mg Tab) 1 tab PO Q6 PRN PRN Reason: Moderate Pain (Scale 4, 5, 6) Stop: 02/28/23 01:48 Buspirone HCl (Buspirone 5 Mg Tab) 5 mg PO BID [facility] Stop: 03/16/23 08:59 Last Admin: 02/14/23 09:26 Dose: 5 mg Calcium Carbonate (Calcium Carbonate 500 Mg Chewable Tab) 500 mg PO TID PRN PRN Reason: Indigestion Stop: 03/16/23 09:14 Dronabinol (Dronabinol 2.5 Mg Cap) 2.5 mg PO BID@1100,1600 [facility] Stop: 03/16/23 10:59 Fentanyl (Fentanyl 100 Mcg/Hr Tdsy) 100 mcg TD Q72H [facility] Stop: 02/28/23 08:59 Last Admin: 02/14/23 09:24 Dose: 100 mcg Haloperidol (Haloperidol Oral Soln 2 Mg/Ml) 1 mg PO Q4 PRN PRN Reason: nausea/vomiting/agitation Stop: 03/16/23 01:55 Hyoscyamine (Hyoscyamine Sulfate 0.125 Mg Tab) 0.125 mg SL Q4 PRN PRN Reason: terminal secretions Stop: 03/16/23 01:48 Ceftriaxone Sodium 2,000 mg/ (Dextrose) 70 mls @ 100 mls/hr IV Q24H [facility]; Protocol Stop: 02/24/23 09:59 Last Admin: 02/14/23 10:33 Dose: 100 mls/hr Lorazepam (Lorazepam 0.5 Mg Tab) 0.5 mg PO Q4 PRN PRN Reason: restlessness/insomnia Stop: 03/16/23 01:48 Lorazepam (Lorazepam 1 Mg Tab) 2 mg SL Q15M PRN PRN Reason: Seizures Stop: 03/16/23 01:48 Miscellaneous (Check Fentanyl Patch Placement) 1 each N/A QS ISAAC Stop: 03/16/23 07:59 Last Admin: 02/14/23 09:26 Dose: 1 each Miscellaneous (Fentanyl Patch Remove & Waste) 1 each N/A Q3D@0859 IS[facility] Stop: 03/16/23 08:58 Last Admin: 02/14/23 09:26 Dose: 1 each Morphine Sulfate (Morphine Sulfate 10 Mg/0.5 Ml Udp) 10 mg PO Q1H PRN PRN Reason: pain/sob Stop: 02/28/23 01:48 Last Admin: 02/14/23 06:20 Dose: 10 mg Morphine Sulfate (Morphine Sulfate 4 Mg/Ml 1 Ml Carp\\Vial) 3 mg IV Q3H PRN PRN Reason: Pain Stop: 02/28/23 09:38 Ondansetron HCl (Ondansetron Inj 2 Mg/Ml 2 Ml Vial) 4 mg IV Q6H PRN PRN Reason: Nausea Stop: 03/16/23 01:48 Promethazine HCl (Promethazine Hcl 25 Mg Tab) 12.5 mg PO Q8H PRN PRN Reason: Nausea Stop: 03/16/23 01:48 PG Care Time/CCT Total # of Minutes Spent Total Time Spent with Patient: Total time spent is greater than 50% in coordination of care (as documented) at patient's floor/unit and/or counseling patient: Coding Level of Care Code 77736 INT INP/OBS CARE 3/75MIN Diagnoses NSTEMI (non-ST elevated myocardial infarction) I21.4 Chest pain R07.9 Symptomatic anemia D64.9
[2023-02-14] MEDS: cefTRIAXone SODIUM 2,000 MG in DEXTROSE 5% 50 ML IV SCH (10:33)
[2023-02-14] MEDS: MoRPHine SULFATE 4 MG/ML 1 ML CARP\\VIAL IV PRN ×4 (11:02→23:58)
--- NOTE | 2023-02-14 12:57 | Urology Consultation ---
Date of Consultation February 14, 2023 Assessment & Plan (1) Prostate cancer metastatic to multiple sites: (2) Urinary obstruction: 63-year-old male with metastatic prostate cancer currently on hospice presented to the hospital with chest pain and was admitted for NSTEMI and anemia. Urology consulted for Roldan catheter exchange. Available records reviewed and patient has history of prostate cancer ([place] 9) presumed metastatic to bone and urinary retention managed with indwelling Roldan catheter. Patient is unsure of date of last catheter exchange. Patient appears confused and history is difficult to obtain. Patient was prepped using sterile technique. Balloon was deflated with only 7 mL returned into the balloon. I began to withdraw the catheter, but the patient was experiencing discomfort so I stopped. RN medicated patient per patient request. Called Dr. Tam to bedside to assess. In the interim, patient pulled out his catheter, balloon had been completely deflated. There was a small amount of blood at his meatus. Dr. Tam placed a 20 F coude catheter using sterile technique. Roldan catheter was patent and draining appropriately at completion, urine was clear yellow with pink tinge. Patient tolerated procedure without complication. Maintain Roldan catheter. We need to obtain records documenting the patient's wishes for ongoing care and confirming his DNR/DNI status. Once confirmed, can continue with comfort measures and maintaining Roldan catheter for comfort and drainage. See physician addendum for further details. History of Present Illness Reason for Consultation: Roldan catheter exchange Requesting Physician: Dr. Ayala Attending Physician: Mandy Ayala MD History of Present Illness This is a 63 year old male with past medical history of metastatic prostate cancer who presented to the emergency department on 02/13/23 with chest pain and was admitted for NSTEMI and anemia. Urology is consulted for Roldan catheter exchange. He has a chronic indwelling catheter to manage urinary retention. Per chart review, he was diagnosed with metastatic prostate cancer in [place]. Available urology notes reviewed. Patient developed urinary retention on 10/17/2022 and went to the ER where a Roldan catheter was placed. CT scan showed bilateral hydronephrosis and osteoblastic lesions. He was referred to urology. He had a prostate MRI which showed a PI-RADS 5 lesion. He then underwent TRUS biopsy and pathology was consistent with prostate adenocarcinoma ([place] 9 (4+5) in 5/5 cores). His urologist recommended ADT and referral to oncology. He declined treatment and is currently on hospice here in [place]. Lab work from 02/13 reviewedcreatinine 1.25, WBC 13.11, hemoglobin 5.4, Plt 19, troponin 186.5. Urine and blood cultures are pending. On IV ceftriaxone. Patient seen and examined at bedside this afternoon. He is awake and resting in bed in no acute distress. He was having an EKG done by nursing due to chest pain. He is unsure of the date of his last catheter placement. Patient appears confused and history was difficult to obtain from patient. Urine appears turbid. Denies fever or chills. Allergies Allergy/AdvReac Type Severity Reaction Status Date / Time oxycodone [From OxyContin] AdvReac Verified 01/24/23 12:46 Home Medications Medication Instructions Recorded Confirmed Type fentanyl 100 mcg/hr transdermal 1 patch transdermal Q72H 01/01/23 02/13/23 History patch buspirone 5 mg tablet 5 mg PO BID 01/24/23 02/13/23 History dronabinol 2.5 mg capsule (Marinol) 2.5 mg PO BID 30 days #60 caps 01/24/23 02/13/23 Rx acetaminophen 650 mg rectal 650 mg [place] Q4 PRN Fever Or Pain 02/13/23 02/13/23 History suppository dexamethasone 2 mg tablet 2 mg PO UD 02/13/23 02/13/23 History haloperidol lactate 2 mg/mL oral 1 mg PO Q4 PRN 02/13/23 02/13/23 History concentrate nausea/vomiting/agitation hydrocodone 7.5 mg-acetaminophen 1 tab PO Q6 PRN Pain 02/13/23 02/13/23 History 325 mg tablet hyoscyamine sulfate 0.125 mg tablet 0.125 mg sublingual Q4 PRN 02/13/23 02/13/23 History terminal secretions lorazepam 1 mg tablet 0.5 mg PO Q4 PRN 02/13/23 02/13/23 History restlessness/insomnia lorazepam 1 mg tablet 2 mg sublingual .Q15 MIN PRN 02/13/23 02/13/23 History Seizures morphine concentrate 100 mg/5 mL 10 mg PO . 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 PT STATES THE EXACT ETIOLOGY IS UNKNOWN BUT BELIEVES IT WAS SECONDARY TO A VIRUS HE HAD JUST PRIOR. PT STATES NO RESIDUAL EFFECTS AT THIS TIME. Hyperglycemia Prostate cancer metastatic to multiple sites Symptomatic anemia Thrombocytopenia Urinary obstruction Surgical History History of surgery PREVIOUS CYST EXCISION History of vasectomy Family History Denies family history of Ovarian cancer Prostate cancer Myocardial infarction Breast cancer Lung cancer Colorectal cancer Social History Smoking Status: Former smoker Age Started Using Tobacco: 19; Age Quit Using Tobacco: 39; packs per day: 1; Cigarettes Per Day: 0; Second Hand Exposure: No; Do You Dip or Chew Tobacco: No; Hx Alcohol Use: No Hx Substance Use: No Preferred Language: Maltese Communication Ability: Effective Visual Impairment: No Limitations Hearing Ability: Normal Veneer Drier Feeder Required: No Beliefs That Will Affect Care: None marital status: Current Living Situation: Alone current occupational status: retired How many Children do You have: 0 Feels Safe at Home: Yes Safety Concerns: Feels Safe At This Time Physical Activity Frequency: Does not Exercise Seatbelt Use: always Sunscreen Use: Yes Assistive Devices: Cane Review of Systems Review of Systems: All systems reviewed & are unremarkable except as noted in HPI & below Physical Exam Constitutional: + thin; no acute distress Respiratory: normal respiratory effort; no respiratory distress and no labored breathing Cardiovascular: Rate/Rhythm: regular rate Extremities: no pedal edema Gastrointestinal (Abdomen): Inspection/Auscultation: abdomen normal to inspection; abdomen not distended Neurologic: moves all extremities and awake Psychiatric: Orientation: oriented to person Genitourinary: Roldan catheter patent and draining turbid appearing urine Results & Data Vital Signs (Past 12 Hours) Vital Signs Temp Pulse Pulse Resp BP BP Pulse Ox 02/14/23 10:59 36.3 C L 86 20 116/87 96 02/14/23 09:59 36.3 C L 89 18 124/68 95 02/14/23 08:59 36.4 C L 92 H 20 116/89 97 02/14/23 08:29 36.3 C L 93 H 20 121/72 96 02/14/23 08:26 36.4 C L 99 H 20 122/76 97 02/14/23 08:14 36.1 C L 93 H 20 128/73 97 02/14/23 06:47 36.1 C L 97 H 20 128/73 96 02/14/23 07:55 36.3 C L 101 H 18 125/76 94 02/14/23 06:32 36.4 C L 101 H 20 127/64 97 02/14/23 05:00 02/14/23 06:02 36.8 C 96 H 18 127/78 96 02/14/23 06:02 36.8 C 96 H 18 127/78 96 02/14/23 06:07 36.8 C 96 H 18 127/78 96 02/14/23 05:47 36.3 C L 90 20 134/75 97 02/14/23 05:31 36.2 C L 93 H 18 104/67 98 02/14/23 05:10 37 C 92 H 18 104/66 97 02/14/23 04:50 37 C 92 H 18 104/66 97 02/14/23 04:50 37.1 C 97 H 20 119/69 97 02/14/23 04:45 37.1 C 97 H 18 119/69 97 02/14/23 04:12 98 02/14/23 03:55 36.9 C 103 H 16 118/80 96 02/14/23 03:25 36.7 C 101 H 18 117/73 95 02/14/23 03:10 36.9 C 106 H 17 116/65 97 02/14/23 02:53 36.9 C 98 H 18 106/64 98 O2 Del Method 02/14/23 10:59 02/14/23 09:59 02/14/23 08:59 02/14/23 08:29 02/14/23 08:26 Room Air 02/14/23 08:14 02/14/23 06:47 03/30/23 07:55 02/14/23 06:32 02/14/23 05:00 Room Air 02/14/23 06:02 02/14/23 06:02 02/14/23 06:07 02/14/23 05:47 02/14/23 05:31 02/14/23 05:10 02/14/23 04:50 02/14/23 04:50 Room Air 02/14/23 04:45 02/14/23 04:12 Room Air 02/14/23 03:55 02/14/23 03:25 02/14/23 03:10 02/14/23 02:53 PG Care Time/CCT Total # of Minutes Spent Total Time Spent with Patient: Total time spent is greater than 50% in coordination of care (as documented) at patient's floor/unit and/or counseling patient: Coding Level of Care Code 18458 IN/OBS CONSULT LVL 3,45M Diagnoses Prostate cancer metastatic to multiple sites C61 Urinary obstruction N13.9
--- NOTE | 2023-02-14 15:07 | XCELERA ---
[id number] \\[id number]
[2023-02-14 16:35] LABS: Albumin Level 3.3 gm/dl (3.4-5.0); Bilirubin,Total 1.1 mg/dl (0.2-1.0); Calcium 9.2 mg/dl (8.6-10.3); Potassium 3.7 mmol/L (3.5-5.1)
[2023-02-14 16:36] LABS: Hematocrit (blood only) 21.3 % (42.0-52.0); Hemoglobin 6.8 g/dl (14.0-18.0); Mean Corpuscular Hemoglobin 28.7 pg (25.0-34.0); Mean Corpuscular Hgb Conc 31.9 g/dL (32.0-36.0); Mean Corpuscular Volume 89.9 fL (80.0-100.0); Mean Platelet Volume 9.8 fL (9.4-12.4); Nucleated RBC # (auto) 3.02 K/uL (0-0.12); Nucleated RBC % (auto) 24.9 %; Platelet Count 65 K/uL (130-400); RDW Coefficient of Variation 17.8 % (11.5-14.5); RDW Standard Deviation 56.5 fL (36.4-46.3); Red Blood Count 2.37 M/uL (4.70-6.10); White Blood Count 12.12 K/ul (4.8-10.8)
[2023-02-14 16:41] LABS: Albumin Globulin Ratio 1.2 (0.9-2); BUN Creatinine Ratio 26.1 (10-20); Creatinine Clr Calc Pharmacy 74.5 ml/min; Est GFR (African American) 80.9 ml/min; Est GFR (Non-African American) 69.8 ml/min; Globulin 2.7 gm/dl (2.5-4.0)
[2023-02-14 16:54] LABS: ALC (manual) 2.79 K/uL (1.2-3.4); ANC (manual) 7.27 K/uL (1.4-6.5); Eosinophils # (manual) 0.24 K/uL (0-0.50); Eosinophils % (manual) 2 %; Lymphocytes # (manual) 2.79 K/uL (1.2-3.4); Lymphocytes % (manual) 23 %; Metamyelocytes # (manual) 0.48 K/uL (0-0); Metamyelocytes % (manual) 4 %; Monocytes # (manual) 0.36 K/uL (0.11-0.59); Monocytes % (manual) 3 %; Myelocytes # (manual) 0.97 K/uL (0-0); Myelocytes % (manual) 8 %; Neutrophils # (manual) 7.27 K/uL (1.40-6.50); Neutrophils % (manual) 60 %; Polychromasia 1+; Tear Drop Cells 2+
--- NOTE | 2023-02-14 19:20 | Hospitalist Progress Note ---
Date of Service February 14, 2023 Assessment & Plan (1) Symptomatic anemia: Plan: Presents with a hemoglobin of 5.[address]ressions on EKG Transfused 2 units PRBCs and hemoglobin only up to 6.8-we will transfuse 2 more units PRBCs today Follow CBC again in the morning This is a normocytic anemia. No recent labs to compare to but baseline hemoglobin was normal in 2019. Peripheral smear shows many nucleated RBCs and possibility of bone marrow involvement with prostate cancer versus myelodysplasia Also some anemia from blood loss as he is having chronic hematuria and epistaxis But with thrombocytopenia, question bone marrow involvement with his prostate cancer Need to also rule out hemolysis -Transfuse hemoglobin as needed to keep above 7 unless symptomatic otherwise -Check reticulocyte count, haptoglobin, total bilirubin, LDH, and fibrinogen in the morning -Check iron studies, B12, folate, TSH in the morning-of note, he will already received 4 units of PRBCs prior to iron studies being checked -Hematology/oncology consult placed (2) Prostate cancer metastatic to multiple sites: Plan: Patient with known metastatic prostate cancer with mets to the bones and lymph nodes Alkaline phosphatase severely elevated in the 800-900 range indicative of bony disease PSA was noted to be 4600 in November 2022. He has not received any treatment for his cancer at this point Apparently as per his POA, he was offered treatment options when he lived in [place] in December and he chose to go on hospice. He is now on hospice and using opioid therapy for pain control, but is asking about his prognosis and options for possible treatment Appreciate urology consultation-urology reached out and thought that it might be worth consulting with oncology to discuss palliative treatment such as antiandrogen therapy to help prolong his life and help with symptoms -consult to urology appreciated for catheter exchange and ongoing hematuria and pain -Consultation to oncology appreciated -Add Pyridium 200 Mg p.o. 3 times daily for painful bladder spasms from hematuria -Maintain chronic Roldan catheter -Treating UTI with ceftriaxone and will follow urine culture and blood cultures -Check PSA in the morning -Check CT head given ongoing confusion although this is likely from opioids -Check CT chest/abdomen/pelvis to assess current disease burden (3) Chronic indwelling Roldan catheter: Plan: Exchanged on 02/14 by urology With ongoing traumatic hematuria and bladder spasms Pyridium for pain (4) Thrombocytopenia: Plan: As noted above Transfused platelets on 02/14 Follow CBC (5) Anxiety: Plan: Continue lorazepam as needed BuSpar (6) Severe protein-calorie malnutrition: Plan: severe protein-calorie malnutrition Secondary to metastatic cancer (7) Decreased appetite: Plan: Continue Marinol (8) Demand ischemia of myocardium: Plan: Troponin trending upward to the 300s. Presented with chest pain and ST depressions in inferior and anterolateral leads in the setting of severe anemia Chest pain is now resolved with transfusion of PRBCs Echocardiogram with preserved EF and no wall motion abnormalities Appreciate cardiology consultation-recommend conservative management. No statin therapy due to overall poor prognosis No aspirin therapy due to thrombocytopenia and bleeding -Follow troponin to peak-check again in the morning Plan DVT prophylaxis-avoid anticoagulation due to ongoing bleeding, add SCDs Disposition-continued stay on telemetry unit Admission and Anticipated Discharge Date Admission Date: February 14, 2023 Subjective Patient had Roldan catheter exchanged today by urology and it was a difficult placement. Shortly before that, the patient accidentally dislodged a previous Roldan catheter and has had some hematuria as well as blood leaking from the meatus around the Roldan catheter. He is having significant bladder spasms in his lower pelvis. He tells me that he does not know why or how he got on hospice but he is int erested in hearing more about treatment options for his prostate cancer and what his prognosis is. Patient cannot recall the last time he had a bowel movement. His friend thinks maybe it was 4 days ago. I discussed his care with oncology and urology I also discussed his care with cardiology Telemetry with normal sinus rhythm with rates in the 80s to sinus tachycardia in the low 100s I discussed his care with his friend at the bedside and his POA, Dudley, on the phone. Physical Exam Constitutional: + ill appearing Patient appears to be in distress from pain. He has difficulty concentrating on the conversation and frequently falls asleep. Respiratory: normal respiratory effort, lungs clear to auscultation Cardiovascular: RRR, no murmur, no edema Gastrointestinal (Abdomen): Inspection/Auscultation: abdomen normal to inspection Percussion/Palpation: + abdomen tender (And suprapubic region) and abdomen soft; no guarding Psychiatric: Orientation: alert, oriented to person, oriented to place and cooperative Eye Contact: + fair eye contact Genitourinary: Roldan catheter in place, no scrotal masses, with blood oozing from the meatus around the catheter Results & Data Results & Data Vital Signs (Past 12 Hours) Vital Signs Temp Pulse Pulse Resp BP BP Pulse Ox 02/14/23 18:50 113 H 20 161/84 H 96 02/14/23 18:35 36.8 C 95 H 20 150/88 H 96 02/14/23 18:30 36.8 C 110 H 20 150/88 H 95 02/14/23 15:48 36.8 C 103 H 18 148/81 H 97 02/14/23 10:59 36.3 C L 86 20 116/87 96 02/14/23 09:59 36.3 C L 89 18 124/68 95 02/14/23 08:59 36.4 C L 92 H 20 116/89 97 02/14/23 08:29 36.3 C L 93 H 20 121/72 96 02/14/23 08:26 36.4 C L 99 H 20 122/76 97 02/14/23 08:14 36.1 C L 93 H 20 128/73 97 02/14/23 07:55 36.3 C L 101 H 18 125/76 94 O2 Del Method 02/14/23 18:50 02/14/23 18:35 02/14/23 18:30 02/14/23 15:48 Room Air 02/14/23 10:59 02/14/23 09:59 02/14/23 08:59 02/14/23 08:29 02/14/23 08:26 Room Air 02/14/23 08:14 02/14/23 07:55 Laboratory Results CBC, BMP, troponin, urine culture, blood cultures reviewed PG Care Time/CCT Total # of Minutes Spent Total Time Spent with Patient: Total time spent is greater than 50% in coordination of care (as documented) at patient's floor/unit and/or counseling patient: Coding Level of Care Code None Diagnoses Symptomatic anemia D64.9 Prostate cancer metastatic to multiple sites C61 Chronic indwelling Roldan catheter Z97.8 Thrombocytopenia D69.6 Anxiety F41.9 Severe protein-calorie malnutrition E43 Decreased appetite R63.0 Demand ischemia of myocardium I24.8
[2023-02-14] MEDS: PHENAZOPYRIDINE HCL 200 MG TAB PO SCH (20:01)
--- NOTE | 2023-02-14 20:40 | Oncology Consultation ---
Date of Consultation February 14, 2023 Assessment & Plan (1) Prostate cancer metastatic to multiple sites: (2) Symptomatic anemia: (3) Urinary obstruction: (4) Thrombocytopenia: Plan 63 year old with widely metastatic prostate cancer and PSA of >4,600 who had previously been enrolled to hospice but is now reconsidering systemic treatment options. -He appears to have very aggressive disease based on very high PSA and em score. 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 -Would recommend obtaining LDH, haptoglobin, reticulocyte count, fibrinogen to assess for cancer associated microangiopathic hemolysis/DIC. -If patient decides he wants to try systemic therapy, although IV chemotherapy with Docetaxel would be preferred in this setting given significant disease burden. However, he has significant cytopenias and so chemotherapy at this time would likely be harmful causing initial worsening in cytopenias. Immediate options for treatment would be bicalutamide 50mg po daily in combination with Degarelix 240mg SC loading dose while inpatient which should not cause flare phenomenon while awaiting insurance approval of novel anti-androgen such as enzalutamide/abiraterone. Agree with palliative care involvement to discuss overall goals of care and if he actually wants to receive systemic therapy -CT CAP for restaging. Check PSA . Also B12, folate and iron studies History of Present Illness Reason for Consultation: Prostate cancer Attending Physician: Mandy Ayala MD History of Present Illness 63 year old gentleman with [place] 4+5 prostate adenocarcinoma with widespread bone/lymph node metastases and PSA of greater than 4,600 who presented to [facility] with chest pain. Labs obtained in the ED revealed WBC 13.1, hemoglobin 5.4, hematocrit 16.6, platelets 19, INR 1.3, total bilirubin 1.5, troponin 186.5, alkaline phosphatase 962. He was admitted for NSTEMI, anemi a and thrombocytopenia. Per review of records, patient recently moved to [place] from [facility] where he was diagnosed with metastatic prostate cancer. He had presented to the ER in [place] around with urinary retention. CT scan revealed bilateral hydronephrosis and bone metastases. He was referred to urology who obtained PSA in which was elevated at 4,643. Prostate biopsy on 12/06/2022 revealed Em 4+5=9 prostate cancer in 5/5 cores. He was then referred to medical oncology where treatment options were discussed but ultimately patient decided on hospice. He then moved back to [place] where he was enrolled to [facility]. Per discussion with Dr. Ayala, patient/POA would like to revisit the option of systemic therapy. Allergies Allergy/AdvReac Type Severity Reaction Status Date / Time oxycodone [From OxyContin] AdvReac Verified 01/24/23 12:46 Home Medications Medication Instructions Recorded Confirmed Type fentanyl 100 mcg/hr transdermal 1 patch transdermal Q72H 01/01/23 02/13/23 History patch buspirone 5 mg tablet 5 mg PO BID 01/24/23 02/13/23 History dronabinol 2.5 mg capsule (Marinol) 2.5 mg PO BID 30 days #60 caps 01/24/23 02/13/23 Rx acetaminophen 650 mg rectal 650 mg [place] Q4 PRN Fever Or Pain 02/13/23 02/13/23 History suppository dexamethasone 2 mg tablet 2 mg PO UD 02/13/23 02/13/23 History haloperidol lactate 2 mg/mL oral 1 mg PO Q4 PRN 02/13/23 02/13/23 History concentrate nausea/vomiting/agitation hydrocodone 7.5 mg-acetaminophen 1 tab PO Q6 PRN Pain 02/13/23 02/13/23 History 325 mg tablet hyoscyamine sulfate 0.125 mg tablet 0.125 mg sublingual Q4 PRN 02/13/23 02/13/23 History terminal secretions lorazepam 1 mg tablet 0.5 mg PO Q4 PRN 02/13/23 02/13/23 History restlessness/insomnia lorazepam 1 mg tablet 2 mg sublingual .Q15 MIN PRN 02/13/23 02/13/23 History Seizures morphine concentrate 100 mg/5 mL 10 mg PO . 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 PT STATES THE EXACT ETIOLOGY IS UNKNOWN BUT BELIEVES IT WAS SECONDARY TO A VIRUS HE HAD JUST PRIOR. PT STATES NO RESIDUAL EFFECTS AT THIS TIME. Hyperglycemia Prostate cancer metastatic to multiple sites Symptomatic anemia Thrombocytopenia Urinary obstruction Surgical History History of surgery PREVIOUS CYST EXCISION History of vasectomy Family History Denies family history of Ovarian cancer Prostate cancer Myocardial infarction Breast cancer Lung cancer Colorectal cancer Social History Smoking Status: Former smoker Age Started Using Tobacco: 19; Age Quit Using Tobacco: 39; packs per day: 1; Cigarettes Per Day: 0; Second Hand Exposure: No; Do You Dip or Chew Tobacco: No; Hx Alcohol Use: No Hx Substance Use: No Preferred Language: Slovenian Communication Ability: Impaired Visual Impairment: No Limitations Hearing Ability: Normal Government Instructor Required: No Beliefs That Will Affect Care: None marital status: Current Living Situation: Alone current occupational status: retired How many Children do You have: 0 Feels Safe at Home: Yes Safety Concerns: Feels Safe At This Time Physical Activity Frequency: Does not Exercise Seatbelt Use: always Sunscreen Use: Yes Assistive Devices: Cane and Walker Results & Data Vital Signs (Past 12 Hours) Vital Signs Temp Pulse Pulse Resp BP BP Pulse Ox 02/14/23 19:35 37.3 C 100 H 20 124/68 92 02/14/23 19:05 37.1 C 99 H 18 143/77 H 91 02/14/23 18:50 113 H 20 161/84 H 96 02/14/23 18:35 36.8 C 95 H 20 150/88 H 96 02/14/23 18:30 36.8 C 110 H 20 150/88 H 95 02/14/23 15:48 36.8 C 103 H 18 148/81 H 97 02/14/23 10:59 36.3 C L 86 20 116/87 96 02/14/23 09:59 36.3 C L 89 18 124/68 95 02/14/23 08:59 36.4 C L 92 H 20 116/89 97 02/14/23 08:29 36.3 C L 93 H 20 121/72 96 02/14/23 08:26 36.4 C L 99 H 20 122/76 97 02/14/23 08:14 36.1 C L 93 H 20 128/73 97 O2 Del Method 02/14/23 19:35 02/14/23 19:05 02/14/23 18:50 02/14/23 18:35 02/14/23 18:30 02/14/23 15:48 Room Air 02/14/23 10:59 02/14/23 09:59 02/14/23 08:59 02/14/23 08:29 02/14/23 08:26 Room Air 02/14/23 08:14
[2023-02-14] MEDS: LORazepam 0.5 MG TAB PO PRN (22:07)
[2023-02-15] MEDS: MoRPHine SULFATE 10 MG/0.5 ML UDP PO PRN ×7 (01:05→23:34)
[2023-02-15] MEDS: CHECK fentaNYL PATCH PLACEMENT SCH ×3 (01:06→16:40)
[2023-02-15] MEDS ORDERED: MoRPHine SULFATE 4 MG/ML 1 ML CARP\\VIAL IV PRN ×2 (02:05→12:40)
[2023-02-15] MEDS: LORazepam 0.5 MG TAB PO PRN (02:33)
--- NOTE | 2023-02-15 05:36 | Electrocardiogram Report ---
Test Reason : Blood Pressure : / mmHG Vent. Rate : 109 BPM Atrial Rate : 109 BPM P-R Int : 140 ms QRS Dur : 096 ms QT Int : 386 ms P-R-T Axes : 048 065 056 degrees QTc Int : 519 ms Sinus tachycardia Incomplete right bundle branch block Nonspecific ST abnormality Prolonged QT Abnormal ECG When compared with ECG of 13-FEB-2023 23:21, ST less depressed in Anterior leads Confirmed by Florentino Turner ([id number]) on 02/15/2023 5:36:32 AM Referred By: REFERRED SELF Confirmed By:Florentino Turner
--- NOTE | 2023-02-15 05:36 | Electrocardiogram Report ---
Test Reason : Blood Pressure : / mmHG Vent. Rate : 124 BPM Atrial Rate : 124 BPM P-R Int : 132 ms QRS Dur : 094 ms QT Int : 348 ms P-R-T Axes : 066 079 038 degrees QTc Int : 499 ms Sinus tachycardia Marked ST abnormality, possible anterior subendocardial injury Abnormal ECG When compared with ECG of 29-JUL-2015 07:07, Vent. rate has increased BY 72 BPM Criteria for Septal infarct are no longer Present ST now depressed in Inferior leads ST now depressed in Anterior leads Confirmed by Florentino Turner ([id number]) on 02/15/2023 5:35:44 AM Referred By: REFERRED SELF Confirmed By:Florentino Turner
--- NOTE | 2023-02-15 06:21 | Electrocardiogram Report ---
Test Reason : Blood Pressure : / mmHG Vent. Rate : 098 BPM Atrial Rate : 098 BPM P-R Int : 168 ms QRS Dur : 098 ms QT Int : 402 ms P-R-T Axes : 068 071 047 degrees QTc Int : 513 ms Normal sinus rhythm Incomplete right bundle branch block Nonspecific ST and T wave abnormality Prolonged QT Abnormal ECG When compared with ECG of 13-FEB-2023 23:49, ST no longer depressed in Anterior leads Confirmed by Florentino Turner ([id number]) on 02/15/2023 6:21:04 AM Referred By: REFERRED SELF Confirmed By:Florentino Turner
[2023-02-15 07:23] LABS: Hematocrit (blood only) 29.3 % (42.0-52.0); Hemoglobin 9.8 g/dl (14.0-18.0); Mean Corpuscular Hemoglobin 29.4 pg (25.0-34.0); Mean Corpuscular Hgb Conc 33.4 g/dL (32.0-36.0); Mean Platelet Volume 9.5 fL (9.4-12.4); Nucleated RBC # (auto) 4.22 K/uL (0-0.12); Nucleated RBC % (auto) 35.5 %; Platelet Count 43 K/uL (130-400); RDW Coefficient of Variation 17.5 % (11.5-14.5); RDW Standard Deviation 54.6 fL (36.4-46.3); Red Blood Count 3.33 M/uL (4.70-6.10); White Blood Count 11.88 K/ul (4.8-10.8)
[2023-02-15 07:28] LABS: Albumin Globulin Ratio 1.2 (0.9-2); Albumin Level 3.6 gm/dl (3.4-5.0); Calcium 10.4 mg/dl (8.6-10.3); Creatinine Clr Calc Pharmacy 83.2 ml/min; Est GFR (African American) 91.8 ml/min; Est GFR (Non-African American) 79.2 ml/min; Globulin 2.9 gm/dl (2.5-4.0); Magnesium 1.9 mg/dl (1.7-2.4); Potassium 3.6 mmol/L (3.5-5.1); Total Protein 6.5 gm/dl (6.0-8.3); Troponin I High Sensitivity 216.8 pg/ml (0-20)
[2023-02-15 07:43] LABS: Ferritin 1105.4 ng/ml (8-388)
[2023-02-15 07:49] LABS: Fibrinogen 348 mg/dl (184-400)
[2023-02-15 07:56] LABS: Prostate SpecificAg Diagnostic > 1420.000 ng/ml (0-4)
--- NOTE | 2023-02-15 08:13 | Hospitalist Progress Note ---
Date of Service February 15, 2023 Assessment & Plan (1) Symptomatic anemia: Plan: - Presented with a hemoglobin of 5.[address] depressions on EKG, troponin peaked in 300s and has started downtrending - Peripheral smear showed many nucleated RBCs and possibility of bone marrow involvement with prostate cancer versus myelodysplasia - Also some anemia from blood loss as he is having chronic hematuria and epistaxis - But with thrombocytopenia, also suspect bone marrow involvement from metastatic prostate cancer - Transfuse hemoglobin as needed to keep above 7 unless symptomatic otherwise; Hgb currently 9.8 this AM reasonable increase after receiving PRBCs - Reticulocyte count, haptoglobin, total bilirubin, LDH, and fibrinogen elevated, suggesting some element of hemolysis as well - B12 and ferritin levels high - Hematology/oncology consult placed and appreciate Dr. Sharma's input, case discussed with her 02/15 - Pall care consulted as patient was previously hospice but came to hospital due to feeling so unwell despite conservative interventions at home - Started Bicalutamide for palliative cancer treatment and can reconsider if patient's goals of care changes with ongoing evals by myself, Oncology, and Palliative care. Patient is aware that his cancer is progressive and metastatic, but wants to see if treatment provides any improvement in his symptoms and worsening cell counts (2) Prostate cancer metastatic to multiple sites: Plan: - Patient with known metastatic prostate cancer with mets to the bones and lymph nodes -Alkaline phosphatase severely elevated in the 800-1000 range suggesting bony metastasis -PSA was noted to be 4600 in November 2022. He has not received any treatment for his cancer at this point, and PSA continues to be severely elevated -Per his POA, he was offered treatment options when he lived in [place] in December and he chose to go on hospice at that time -He was on hospice [employer] and using opioid therapy for pain control, but is asking about his prognosis and options for possible treatment, see Onc eval above -Appreciate urology consultation-suggested oncology consult as above to discuss palliative treatment such as antiandrogen therapy to help with symptoms -consult to urology appreciated for catheter exchange and ongoing hematuria and pain -Cont Pyridium 200 Mg p.o. 3 times daily for painful bladder spasms from hematuria -Maintain chronic Roldan catheter -Treating UTI with ceftriaxone and will follow urine culture and blood cultures -CT Head/Chest/AP and confer with Onc regarding disease burden, pathologic fractures (3) Chronic indwelling Roldan catheter: Plan: -Exchanged on 02/14 by urology -With ongoing traumatic hematuria and bladder spasms -Pyridium for pain (4) Thrombocytopenia: Plan: -As noted above -Transfused platelets on 02/14, plts unfortunately low 43 today, appreciate heme/onc recs -Follow CBC (5) Anxiety: Plan: -Continue lorazepam as needed with dose at nighttime for sleep given significant anxiety in-hospital -Cont BuSpar (6) Severe protein-calorie malnutrition: Plan: severe protein-calorie malnutrition Secondary to metastatic cancer Supplement dietary needs as able, and encourage PO intake (7) Decreased appetite: Plan: Continue Marinol (8) Demand ischemia of myocardium: Plan: Troponin peaked and downtrending. Presented with chest pain and ST depressions in inferior and anterolateral leads in the setting of severe anemia Chest pain is now resolved with transfusion of PRBCs Echocardiogram with preserved EF and no wall motion abnormalities Appreciate cardiology consultation-recommend conservative management. No statin therapy due to overall poor prognosis No aspirin therapy due to thrombocytopenia and bleeding (9) UTI (urinary tract infection) due to urinary indwelling Roldan catheter: Plan: Rocephin for complicated UTI Plan DVT prophylaxis-avoid anticoagulation due to ongoing bleeding, add SCDs Disposition-continued stay on telemetry unit, with ongoing evaluation by Onc/Palliative Care/hospitalist service for dispo Admission and Anticipated Discharge Date Admission Date: February 14, 2023 Subjective Overnight with difficulty sleeping due to discomfort in low back and restlessness. No complaints on my evaluation of chest pain, SOB, nausea. Review of Systems Review of Systems: All systems reviewed & are unremarkable except as noted in Subjective Physical Exam Constitutional: thin. frail appearing Respiratory: normal respiratory effort, lungs clear to auscultation Cardiovascular: RRR, no murmur, no edema Gastrointestinal (Abdomen): normal bowel sounds, soft, nontender, no hepatosplenomegaly Skin: no rashes, warm and dry Psychiatric: alert and oriented, mild confusion at times but redirectable Results & Data Results & Data Vital Signs (Past 12 Hours) Vital Signs Temp Pulse Pulse Resp BP BP Pulse Ox 02/14/23 21:59 109 H 02/15/23 03:15 36.8 C 122 H 22 153/82 H 92 02/15/23 02:26 37.5 C 110 H 20 147/74 H 96 02/15/23 01:36 37 C 103 H 20 146/81 H 96 02/15/23 00:36 37.0 C 98 H 19 119/70 94 02/14/23 23:39 37 C 99 H 18 127/76 92 02/14/23 23:36 37.4 C 97 H 20 120/74 93 02/14/23 23:06 37.1 C 104 H 20 126/71 93 02/14/23 22:51 37.3 C 101 H 20 127/92 92 02/14/23 22:34 37.4 C 102 H 20 121/75 90 02/14/23 21:41 37.1 C 107 H 20 131/76 92 02/14/23 21:35 37.4 C 106 H 20 128/76 93 02/14/23 20:35 37.4 C 103 H 20 121/65 93 O2 Del Method 02/14/23 21:59 02/15/23 03:15 Room Air 02/15/23 02:26 02/15/23 01:36 02/15/23 00:36 02/14/23 23:39 Room Air 02/14/23 23:36 02/14/23 23:06 02/14/23 22:51 02/14/23 22:34 02/14/23 21:41 02/14/23 21:35 02/14/23 20:35 PG Care Time/CCT Total # of Minutes Spent Total Time Spent with Patient: Total time spent is greater than 50% in coordination of care (as documented) at patient's floor/unit and/or counseling patient: Coding Level of Care Code 45331 SUB INP/OBS CARE 3/50MIN Diagnoses Symptomatic anemia D64.9 Prostate cancer metastatic to multiple sites C61 Chronic indwelling Roldan catheter Z97.8 Thrombocytopenia D69.6 Anxiety F41.9 Severe protein-calorie malnutrition E43 Decreased appetite R63.0 Demand ischemia of myocardium I24.8 UTI (urinary tract infection) due to urinary indwelling Roldan catheter T83.511A; N39.0
[2023-02-15 08:28] LABS: Reticulocyte % 4.7 % (0.5-2.0); Reticulocytes # 0.16 10^6/uL (0.02-0.10)
[2023-02-15 08:31] LABS: ALC (manual) 2.02 K/uL (1.2-3.4); ANC (manual) 6.65 K/uL (1.4-6.5); Eosinophils # (manual) 0.48 K/uL (0-0.50); Eosinophils % (manual) 4 %; Lymphocytes # (manual) 2.02 K/uL (1.2-3.4); Lymphocytes % (manual) 17 %; Metamyelocytes # (manual) 1.07 K/uL (0-0); Metamyelocytes % (manual) 9 %; Monocytes # (manual) 1.19 K/uL (0.11-0.59); Monocytes % (manual) 10 %; Myelocytes # (manual) 0.36 K/uL (0-0); Myelocytes % (manual) 3 %; Neutrophils # (manual) 6.65 K/uL (1.40-6.50); Neutrophils % (manual) 56 %; Polychromasia 1+; Promyelocytes # (manual) 0.24 K/uL (0-0); Promyelocytes % (manual) 2 %; Tear Drop Cells 1+
[2023-02-15] MEDS: DOCUSATE SODIUM/SENNA 50/8.6MG TAB PO SCH (09:19)
[2023-02-15] MEDS: POLYETHYLENE (MIRALAX) 17 GM PACK PO SCH (09:19)
[2023-02-15] MEDS: busPIRone 5 MG TAB PO SCH ×2 (09:20→20:36)
[2023-02-15] MEDS: PHENAZOPYRIDINE HCL 200 MG TAB PO SCH ×3 (09:20→20:36)
--- NOTE | 2023-02-15 09:36 | Palliative Care Consultation ---
Date of Consultation February 15, 2023 Assessment & Plan (1) Malignant bone pain: Imaging shows extensive bony metastases throughout his spine with additional right femoral lesion with impending fracture. Discussed options for analgesia. Continue fentanyl and morphine for now. Would add dexamethasone specifically for bone pain. Dudley tells me that he had been on dexamethasone with hospice also. (2) Constipation: Opioid induced with decreased po intake and decreased mobility Senna and miralax prescribed. Monitor (3) Palliative care encounter: I talked with Mr. Martinez and his friend about how he is coping with his illness and what his goals are for his care. He tells me that he has some anger and distrust with the medical community after his care in [place]. They feel that there was a delay in treatment and inadequate pain management. After discussing the imaging results in [place], they felt that he news was "catastrophic". At that time, Reinier understood from their discussion that the side effects of the treatment would outweigh the benefits and he opted for hospice care and moved back to [place]. He has had progressive functional decline and increased pain. His activity has been very limited. His po intake has also been very limited. He tells me that he is able to get himself up and dressed in the morning for the most part. He has friends helping him with meals and other ADLs. I asked Reinier what his thoughts were about treatment for his cancer. He told me that he has seen the decline and now thinks he would want to consider treatment to help him live longer. He tells me that he chose hospice initially because he did not want to suffer, which to him meant having severe pain. We talked about what living well would look like to him. He tells me that getting out to play golf and being able to have sex are important quality of life indicators for him. He did not feel like his current way of life was good living for him. He has imaging pending to further evaluate the extent of his disease and will be talking further about treatment options. I talked with him about concern that his goals for quality of life may not be achievable and encouraged him to talk with oncology about whether these were realistic goals with treatment. Palliative care will follow. History of Present Illness Reason for Consultation: goals of care Requesting Physician: Dr. Ayala Attending Physician: Tamica Borrero DO History of Present Illness 63 yo gentleman with metastatic prostate cancer who had been on hospice prior to admission. MRI done in November in [place] where he had been living at the time shows abdominopelvic adenopathy and bony mets in the spine and pelvis. He presented with chest pain and NSTEMI as well as UTI. Troponin was 186 on admission and peaked at 312. He also has anemia with hemoglobin of 5.4 and platelet count of 19K. He has received transfusions of red cells and platelets. He was also seen by urology for catheter exchange due to urinary retention. Despite being on hospice prior to admission. He expressed some interest in options for cancer treatment. He is currently resting in bed with some mild confusion. His friend, and POA, Dudley Patel, is at bedside. He denies pain or discomfort at rest but does have facial grimace with movement and has been complaining of severe pain in his back. He is on a 100mcg fentanyl patch and has had 7 doses (70mg OME) of roxanol in the last 24 hours. He has been on escalating doses of morphine at home with hospice supervision. Allergies Allergy/AdvReac Type Severity Reaction Status Date / Time oxycodone [From OxyContin] AdvReac Verified 01/24/23 12:46 Home Medications Medication Instructions Recorded Confirmed Type fentanyl 100 mcg/hr transdermal 1 patch transdermal Q72H 01/01/23 02/13/23 History patch buspirone 5 mg tablet 5 mg PO BID 01/24/23 02/13/23 History dronabinol 2.5 mg capsule (Marinol) 2.5 mg PO BID 30 days #60 caps 01/24/23 02/13/23 Rx acetaminophen 650 mg rectal 650 mg MO Q4 PRN Fever Or Pain 02/13/23 02/13/23 History suppository dexamethasone 2 mg tablet 2 mg PO UD 02/13/23 02/13/23 History haloperidol lactate 2 mg/mL oral 1 mg PO Q4 PRN 02/13/23 02/13/23 History concentrate nausea/vomiting/agitation hydrocodone 7.5 mg-acetaminophen 1 tab PO Q6 PRN Pain 02/13/23 02/13/23 History 325 mg tablet hyoscyamine sulfate 0.125 mg tablet 0.125 mg sublingual Q4 PRN 02/13/23 02/13/23 History terminal secretions lorazepam 1 mg tablet 0.5 mg PO Q4 PRN 02/13/23 02/13/23 History restlessness/insomnia lorazepam 1 mg tablet 2 mg sublingual .Q15 MIN PRN 02/13/23 02/13/23 History Seizures morphine concentrate 100 mg/5 mL 10 mg PO . EVERY 1 HOUR PRN 02/13/23 02/13/23 History (20 mg/mL) oral solution pain/sob promethazine 12.5 mg tablet 12.5 mg PO Q8 PRN Nausea 02/13/23 02/13/23 History Patient History Medical History Chronic indwelling Roldan catheter History of Guillain-Hollenberg syndrome OCCURED SEVERAL YEARS AGO DURING THE TIME THAT PATIENT HAD RESIDED IN [facility]. PT STATES THE EXACT ETIOLOGY IS UNKNOWN BUT BELIEVES IT WAS SECONDARY TO A VIRUS HE HAD JUST PRIOR. PT STATES NO RESIDUAL EFFECTS AT THIS TIME. Hyperglycemia Prostate cancer metastatic to multiple sites Symptomatic anemia Thrombocytopenia Urinary obstruction Surgical History History of surgery PREVIOUS CYST EXCISION History of vasectomy Family History Denies family history of Ovarian cancer Prostate cancer Myocardial infarction Breast cancer Lung cancer Colorectal cancer Social History Smoking Status: Former smoker Age Started Using Tobacco: 19; Age Quit Using Tobacco: 39; packs per day: 1; Cigarettes Per Day: 0; Second Hand Exposure: No; Do You Dip or Chew Tobacco: No; Hx Alcohol Use: No Hx Substance Use: No Preferred Language: Filipino Communication Ability: Impaired Visual Impairment: No Limitations Hearing Ability: Normal Improvement Specialist Required: No Beliefs That Will Affect Care: None marital status: Current Living Situation: Alone current occupational status: retired How many Children do You have: 0 Feels Safe at Home: Yes Safety Concerns: Feels Safe At This Time Physical Activity Frequency: Does not Exercise Seatbelt Use: always Sunscreen Use: Yes Assistive Devices: Cane and Walker Review of Systems Review of Systems: Pain 0/3 now, 3/3 at worst Dyspnea 0/3 Nausea 0/3 Drowsiness 1/3 Anorexia 2/3 Physical Exam Constitutional: + thin and + frail appearing ENMT: Nose: + epistaxis Mouth: + dry oral mucous membranes Respiratory: normal respiratory effort; no labored breathing Gastrointestinal (Abdomen): LBM 02/13 Musculoskeletal: Extremities: + muscle atrophy Skin: warm and dry Neurologic: mild confusion Genitourinary: catheter Results & Data Vital Signs (Past 12 Hours) Vital Signs Temp Pulse Pulse Resp BP BP Pulse Ox 02/15/23 08:14 99.5 F 107 H 18 141/82 H 96 02/14/23 21:59 109 H 02/15/23 03:15 98.2 F 122 H 22 153/82 H 92 02/15/23 02:26 99.5 F 110 H 20 147/74 H 96 02/15/23 01:36 98.6 F 103 H 20 146/81 H 96 02/15/23 00:36 98.6 F 98 H 19 119/70 94 02/14/23 23:39 98.6 F 99 H 18 127/76 92 02/14/23 23:36 99.3 F 97 H 20 120/74 93 02/14/23 23:06 98.8 F 104 H 20 126/71 93 02/14/23 22:51 99.1 F 101 H 20 127/92 92 02/14/23 22:34 99.3 F 102 H 20 121/75 90 02/14/23 21:41 98.8 F 107 H 20 131/76 92 O2 Del Method 02/15/23 08:14 Room Air 02/14/23 21:59 02/15/23 03:15 Room Air 02/15/23 02:26 02/15/23 01:36 02/15/23 00:36 02/14/23 23:39 Room Air 02/14/23 23:36 02/14/23 23:06 02/14/23 22:51 02/14/23 22:34 02/14/23 21:41 PG Care Time/CCT Total # of Minutes Spent Total Time Spent: 80 Total Time Spent with Patient: Total time spent is greater than 50% in coordination of care (as documented) at patient's floor/unit and/or counseling patient: goals of care, symptom management, patient and family education and support Coding Level of Care Code 06265 INT INP/OBS CARE 3/75MIN Diagnoses Malignant bone pain G89.3; M89.8X9 Constipation K59.00 Palliative care encounter Z51.5
[2023-02-15] MEDS ORDERED: OPTIRAY 350 100ml IV ONE (09:46)
--- NOTE | 2023-02-15 09:53 | CT Scan Report ---
CT head/brain wo con CLINICAL HISTORY: 63 years-old Male with altered mentation,met prostate CA. Acutely altered mental s tatus TECHNIQUE: Multiple axial CT images of the head were obtained without contrast. A dose lowering tech nique was utilized adhering to the principles of ALARA. COMPARISON: None. FINDINGS: No acute intracranial hemorrhage, midline shift, intracranial mass, territorial ischemia or abnormal extra-axial collection. Motion degraded exam. Involutional changes with mild ventriculomegaly, transv erse dimension of the lateral ventricles measuring 4.4 cm. The calvarium is intact. Mild mucosal thickening of the posterior ethmoid air cells. Trace right mas toid effusion. IMPRESSION: Motion degraded exam. No acute intracranial abnormality identified. ACT 112: Negative or not required by law. The above report was generated using voice recognition software. It may contain grammatical, syntax o r spelling errors. Electronically signed by: Darin Rose M.D. 02/15/2023 9:52 AM
--- NOTE | 2023-02-15 10:05 | CT Scan Report ---
CHEST CT WITH CONTRAST CT DOSE: 3644.54 mGy.cm HISTORY: metastatic prostate CA,assess for mets TECHNIQUE: Multiaxial CT images of the chest were performed following the intravenous administration of contrast. A dose lowering technique was utilized adhering to the principles of ALARA. COMPARISON: None. FINDINGS: There is extensive diffuse osteoblastic metastatic disease. There are multiple pathologic m ild to moderate compression fractures throughout the visualized thoracic/lumbar spine. This includes a pathologic burst fracture at the T9 level. No significant retropulsion. There are few pathologic ri b fractures due to the extensive destructive change in the metastatic disease. There is extensive soo tructive change within the proximal right femur which may represent an impending fracture. There is m ild paraspinal and epidural soft tissue tumor extension throughout the majority of the thoracic spine . However, no high-grade central canal stenosis. The abdominal structures will be reported on the day abdomen and pelvis CT. Prominent gastrohepatic lymph nodes are partially visualized on this bull dy. Normal thyroid gland. The mediastinal and bilateral hilar lymph nodes remain subcentimeter in merrick rt axis diameter. There are small bilateral pleural effusions noted. Normal caliber thoracic aorta. T he heart is mildly enlarged. No pericardial effusion. Normal esophagus. The main pulmonary arteries a re patent. No pneumothorax. The central airways are patent. There is a 2 mm nodule within the lingula on image 173. Small linear scarlike density within the right lung apex. There are few small patchy g roundglass airspace opacities within the right lung and lingula. These may represent a low-grade pneu monitis. Consolidation within the lower lobes posteriorly favor compressive atelectasis from the pleu ral effusions. Small subchondral pathologic fracture within the right humeral head. IMPRESSION: 1. Extensive diffuse osteoblastic metastatic disease with multiple pathologic fractures within the th oracic/lumbar spine and ribs. 2. Mild paraspinal and epidural soft tissue tumor extension throughout the majority of the thoracic s pine. However, no significant interval canal stenosis. 3. Small bilateral pleural effusions. 4. A few small patchy groundglass airspace opacities within the right lung and lingula. These may rep resent a low-grade pneumonitis. 5. Destructive change within the humeral neck suggesting an impending fracture. 6. The abdominal structures will be reported on the same day abdomen and pelvis CT. ACT 112: Negative or not required by law. Electronically signed by: Matt Jimenez M.D. 02/15/2023 10:02 AM
--- NOTE | 2023-02-15 10:18 | CT Scan Report ---
ABDOMEN AND PELVIS CT WITH IV CONTRAST HISTORY: Subsequent treatment strategy. Follow-up study in a patient with history of prostate cancer assess metastatic prostate CA TECHNIQUE: Multiaxial CT images of the abdomen and pelvis were performed following the IV administrat ion of 90 cc of Optiray, A dose lowering technique was utilized adhering to the principles of ALARA. COMPARISON STUDY: Chest CT of same day FINDINGS: Moderate cardiomegaly with dilation of the pulmonary arteries suggestive of pulmonary arter ial hypertension. Coronary artery calcifications. Layering pleural effusions with mild dependent biba silar consolidation. No pneumatosis or pneumoperitoneum. The study is mildly degraded by respiratory motion artifact. The spleen is enlarged, 13.9 cm. Unremarkable pancreas. Mild adrenal gland thickening suggestive of h yperplasia. Distended gallbladder without wall thickening. There are a few scattered subcentimeter hy podensities of the liver suggestive of probable cysts. Patency of the hepatic and portal veins. Scatt ered hypodensities of the kidneys suggestive of cysts measure up to 1.5 cm on the left. 4 mm calcific ation of the anterior interpolar left kidney. No hydronephrosis. A Roldan catheter is in place. Decomp ressed or bladder with wall thickening and perivesicular stranding. Layering subcentimeter calculi wi thin the dependent urinary bladder. Air within the bladder lumen is likely secondary to instrumentati on. Heterogeneously enlarged prostate. Trace pelvic ascites. Atherosclerosis of the abdominal aorta. Pathologic iliac chain lymph nodes measure up to 1.1 cm on th e right, image 384. Additional pathologic para-aortic and pericaval lymph nodes include index 1.8 x 1 .1 cm periaortic lymph node on image 179. Retrocrural lymphadenopathy. No bowel obstruction or bowel wall thickening. Colonic diverticulosis. Moderate colonic fecal retention. Noninflamed appendix. Exte nsive osteoblastic skeletal metastasis. Numerous pathologic nondisplaced bilateral rib fractures. Pat hologic thoracolumbar compression deformities without significant retropulsion. Epidural extension of disease noted throughout the spine. No high-grade central canal stenosis identified. Lumbar levoscol iosis. IMPRESSION: 1. Small pleural effusions with mild bibasilar consolidation. 2. Lymphatic metastasis with extensive osteoblastic skeletal metastasis. 3. Pathologic rib and thoracolumbar compression deformities with epidural disease extension. No signi ficant retropulsion or high-grade central canal stenosis identified. 4. Prostamegaly with suggested chronic bladder outlet obstruction. 5. Urinary bladder calculi. 6. Additional findings as above. ACT 112: Negative or not required by law. The above report was generated using voice recognition software. It may contain grammatical, syntax o r spelling errors. Electronically signed by: Darin Rose M.D. 02/15/2023 10:16 AM
[2023-02-15] MEDS: BICALUTAMIDE 50 MG TAB PO SCH (12:01)
[2023-02-15] MEDS: cefTRIAXone SODIUM 2,000 MG in DEXTROSE 5% 50 ML IV SCH (12:01)
[2023-02-15] MEDS: dexAMETHasone 4 MG TAB PO SCH ×2 (12:01→20:36)
--- NOTE | 2023-02-15 15:09 | Urology Progress Note ---
I have discussed Mr. Martinez's case with JUDY Matson and agree with the above documentation. Due to his metastatic disease burden, he would not be a good candidate for radical prostatectomy as this would not address all his disease. He could consider treatment with androgen deprivation/hormonal therapy, with or without chemotherapy as discussed in the medical oncology note. I would recommend he continue to work with palliative care to clarify his goals of care and he should continue to work with medical oncology if he would like to pursue additional treatment. He can maintain his Roldan catheter for now. He may be a candidate for a channel TURP to address his bladder outlet in the future, but this could be addressed as an outpatient. Urology will sign off for now and coordinate outpatient visit for catheter management. Please call with any questions or concerns. -Yoan Simental MD. Date of Service February 15, 2023 Assessment & Plan (1) Prostate cancer metastatic to multiple sites: Plan: 63-year-old male with metastatic prostate cancer currently on hospice presented to the hospital with chest pain and was admitted for NSTEMI and anemia. Urology follow-up of Roldan catheter, metastatic prostate cancer. Labs reviewedcreatinine 1.0, WBC 11.88, hemoglobin improved to 9.8 after 4 units of PRBCs, Plt 43 (after 2 units of Plts), PSA > 1420. Urine culture showing gram-negative bacilli. Blood cultures no growth x24 hours. Remains on IV ceftriaxone. Follow cultures and narrow per sensitivity data when available. Patient was on hospice prior to admission. Since arrival, he has expressed some interest in cancer treatment options. CT imaging shows extensive bony metastasis throughout his spine with right femoral lesion with impending fracture. He has been seen by oncology and palliative care today. Recommend continue to establish patient's goals of care. He is not a surgical candidate due to current disease burden. He could try systemic therapy as discussed with oncology. Recommend ongoing management with oncology and palliative medicine per patient's goals. Continue supportive care and pain management. Maintain Roldan catheter. Urology will follow peripherally. See attending physician note for further details on plan of care. Admission and Anticipated Discharge Date Admission Date: February 14, 2023 Subjective Patient seen and examined at bedside this afternoon. He is awake and resting in bed in no apparent distress. No abdominal, suprapubic or flank discomfort. Roldan is patent and draining orange-colored urine. No nausea or vomiting. No fever or chills. Review of Systems Constitutional: as per Subjective / HPI Gastrointestinal: as per Subjective / HPI Genitourinary: + as per Subjective / HPI Physical Exam Constitutional: + thin and + frail appearing; no acute distress Respiratory: normal respiratory effort; no respiratory distress and no labored breathing Cardiovascular: Extremities: no pedal edema Gastrointestinal (Abdomen): Inspection/Auscultation: abdomen normal to inspection; abdomen not distended Neurologic: moves all extremities and awake Psychiatric: Orientation: oriented to person Mild confusion Genitourinary: Roldan catheter patent and draining orange urine Results & Data Vital Signs (Past 12 Hours) Vital Signs Temp Pulse Resp BP Pulse Ox O2 Del Method 02/15/23 14:54 37.1 C 95 H 22 119/73 93 Room Air 02/15/23 08:00 Room Air 02/15/23 12:00 37.4 C 94 H 17 126/73 95 Room Air 02/15/23 08:14 37.5 C 107 H 18 141/82 H 96 Room Air 02/15/23 03:15 36.8 C 122 H 22 153/82 H 92 Room Air PG Care Time/CCT Total # of Minutes Spent Total Time Spent with Patient: Total time spent is greater than 50% in coordination of care (as documented) at patient's floor/unit and/or counseling patient: Coding Level of Care Code 00179 SUB INP/OBS CARE 2/35MIN Diagnoses Prostate cancer metastatic to multiple sites C61
[2023-02-15] MEDS: LORazepam 0.5 MG TAB PO SCH (20:36)
[2023-02-16] MEDS: CHECK fentaNYL PATCH PLACEMENT SCH ×3 (00:43→16:55)
[2023-02-16] MEDS: MoRPHine SULFATE 10 MG/0.5 ML UDP PO PRN ×3 (02:13→09:18)
[2023-02-16] MEDS: LORazepam 0.5 MG TAB PO PRN ×3 (03:02→23:09)
[2023-02-16 06:58] LABS: Hemoglobin 8.5 g/dl (14.0-18.0); Mean Corpuscular Hemoglobin 29.4 pg (25.0-34.0); Mean Corpuscular Hgb Conc 32.7 g/dL (32.0-36.0); Mean Platelet Volume 9.5 fL (9.4-12.4); Nucleated RBC # (auto) 1.01 K/uL (0-0.12); Nucleated RBC % (auto) 10.3 %; Platelet Count 24 K/uL (130-400); RDW Coefficient of Variation 17.6 % (11.5-14.5); RDW Standard Deviation 55.7 fL (36.4-46.3); Red Blood Count 2.89 M/uL (4.70-6.10); White Blood Count 9.82 K/ul (4.8-10.8)
[2023-02-16 07:11] LABS: Albumin Globulin Ratio 1.2 (0.9-2); Albumin Level 3.2 gm/dl (3.4-5.0); BUN Creatinine Ratio 23.7 (10-20); Bilirubin,Total 1.3 mg/dl (0.2-1.0); Calcium 9.4 mg/dl (8.6-10.3); Creatinine Clr Calc Pharmacy 88.7 ml/min; Est GFR (African American) 95.2 ml/min; Est GFR (Non-African American) 82.2 ml/min; Globulin 2.6 gm/dl (2.5-4.0); Potassium 4.3 mmol/L (3.5-5.1); Total Protein 5.8 gm/dl (6.0-8.3)
--- NOTE | 2023-02-16 07:40 | Hematology/Oncology Prog Note ---
Date of Service February 16, 2023 Assessment & Plan (1) Prostate cancer metastatic to multiple sites: (2) Thrombocytopenia: (3) Symptomatic anemia: Plan I had an extensive discussion with patient today regarding treatment options for metastatic prostate cancer ranging from androgen deprivation therapy in combination with IV chemotherapy or Novell antiandrogen such as enzalutamide or abiraterone. Explained to him that treatment is usually overall well-tolerated. However, given his significant cytopenias likely due to bone marrow involvement from metastatic prostate cancer I would not recommend IV chemotherapy at this time. Discussed option of androgen deprivation therapy in combination with antiandrogen. Continuing with hospice would also be an option given very aggressive disease. If he decides to receive active treatment, will continue with bicalutamide 50 mg p.o. daily while in the hospital. Also plan to give degarelix to 240 mg SC loading dose if available inpatient. Upon discharge, will switch from bicalutamide to enzalutamide or abiraterone. He had multiple questions which indicated were answered to satisfaction. He indicated that he would like to discuss options with his friends before making a final decision.I will set him up for outpatient follow-up with me if he decides to receive systemic therapy. Admission and Anticipated Discharge Date Admission Date: February 14, 2023 Subjective No new issues Results & Data Vital Signs (Past 12 Hours) Vital Signs Temp Pulse Pulse Resp BP Pulse Ox O2 Del Method 02/16/23 07:38 36.8 C 93 H 18 115/70 96 Room Air 02/15/23 22:03 90 02/16/23 02:35 36.8 C 114 H 18 139/70 98 Room Air 02/15/23 22:48 36.6 C 74 18 95/55 L 95 Room Air 02/15/23 20:00 Room Air
[2023-02-16 07:45] LABS: ALC (manual) 1.08 K/uL (1.2-3.4); ANC (manual) 6.97 K/uL (1.4-6.5); Blast Cells % (manual) 1 %; Eosinophils # (manual) 0.29 K/uL (0-0.50); Eosinophils % (manual) 3 %; Lymphocytes # (manual) 1.08 K/uL (1.2-3.4); Lymphocytes % (manual) 11 %; Metamyelocytes # (manual) 0.79 K/uL (0-0); Metamyelocytes % (manual) 8 %; Monocytes # (manual) 0.49 K/uL (0.11-0.59); Monocytes % (manual) 5 %; Myelocytes % (manual) 2 %; Neutrophils # (manual) 6.97 K/uL (1.40-6.50); Neutrophils % (manual) 71 %; Polychromasia 1+; Tear Drop Cells 1+
--- NOTE | 2023-02-16 08:24 | Electrocardiogram Report ---
Test Reason : Blood Pressure : / mmHG Vent. Rate : 108 BPM Atrial Rate : 108 BPM P-R Int : 168 ms QRS Dur : 090 ms QT Int : 366 ms P-R-T Axes : 062 070 053 degrees QTc Int : 490 ms Sinus tachycardia Normal ECG When compared with ECG of 14-FEB-2023 14:34, Nonspecific ST abnormality no longer present Confirmed by Madan Pugh ([id number]) on 02/16/2023 8:23:57 AM Referred By: REFERRED SELF Confirmed By:Madan Pugh
--- NOTE | 2023-02-16 08:27 | Hospitalist Progress Note ---
Date of Service February 16, 2023 Assessment & Plan (1) Symptomatic anemia: Plan: - Presented with a hemoglobin of 5.[address] depressions on EKG, troponin peaked in 300s and has since downtrended - Peripheral smear showed many nucleated RBCs and possibility of bone marrow involvement with prostate cancer versus myelodysplasia - Reticulocyte count, haptoglobin, total bilirubin, LDH, and fibrinogen elevated, suggesting some element of hemolysis as well - Also some anemia from blood loss as he is having chronic hematuria and epistaxis - Given his thrombocytopenia I also suspect bone marrow involvement from metastatic prostate cancer - Transfuse hemoglobin as needed to keep above 7 unless symptomatic otherwise; Hgb currently 8.5 this AM, daily monitoring and will likely need intermittent transfusion given bone marrow involvement from metastatic cancer - B12 and ferritin levels high - Hematology/oncology consult placed and appreciate Dr. Sharma's input, case discussed with her 02/16 - Pall care consulted as patient was previously hospice but came to hospital due to feeling so unwell despite conservative interventions at home -After discussion with the patient, hematology, patient's social supports, today will receive degarelix 240 mg loading dose while inpatient, to start bicalutamide 50 mg p.o. daily for palliative cancer treatment and can reconsider if patient's goals of care changes with ongoing evals by myself, Oncology, and Palliative care. Patient is aware that his cancer is progressive and metastatic, but wants to see if treatment provides any improvement in his symptoms and worsening cell counts -PT and OT evaluations ordered given that patient will no longer be on hospice to determine functional safety for home (2) Prostate cancer metastatic to multiple sites: Plan: -Patient with known metastatic prostate cancer with mets to the bones and lymph nodes -Alkaline phosphatase severely elevated in the 800-1000 range suggesting bony metastasis -PSA was noted to be 4600 in November 2022. 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 3 times daily for painful bladder spasms from hematuria -Maintain chronic Roldan catheter -Treating UTI with ceftriaxone, pansensitive E. coli, ceftriaxone while admitted with transition to oral on discharge -CT Head/Chest/AP performed to further evaluate cancer burden, patient will see hematology in outpatient setting to follow (3) Chronic indwelling Roldan catheter: Plan: -Exchanged on 02/14 by urology -With ongoing traumatic hematuria and bladder spasms -Pyridium for pain (4) Thrombocytopenia: Plan: -As noted above -Transfused platelets on 02/14, plts unfortunately low 24 today, appreciate heme/onc recs, no platelet transfusion at this time -Follow CBC (5) Anxiety: Plan: -Continue lorazepam as needed with dose at nighttime for sleep given significant anxiety in-hospital, as well as melatonin for sleep -Cont BuSpar (6) Severe protein-calorie malnutrition: Plan: severe protein-calorie malnutrition Secondary to metastatic cancer Supplement dietary needs as able with nutritional supplements, Marinol, and encourage PO intake (7) Decreased appetite: Plan: Continue Marinol (8) Demand ischemia of myocardium: Plan: Troponin peaked and downtrending. Presented with chest pain and ST depressions in inferior and anterolateral leads in the setting of severe anemia Chest pain is now resolved with transfusion of PRBCs Echocardiogram with preserved EF and no wall motion abnormalities Appreciate cardiology consultation-recommend conservative management. No statin therapy due to overall poor prognosis No aspirin therapy due to thrombocytopenia and bleeding (9) UTI (urinary tract infection) due to urinary indwelling Roldan catheter: Plan: Rocephin for complicated UTI (10) Right arm pain: Plan: With complaints of right shoulder/arm pain for the last several months, worsening over the last week or so CT for cancer burden notes findings in right humeral neck suggestive of impending fracture Case discussed peripherally with orthopedics, recommended sling and outpatient follow-up Plan DVT prophylaxis-avoid anticoagulation due to ongoing bleeding; SCDs Disposition-continued stay on telemetry unit, with ongoing evaluation by Onc/Palliative Care/hospitalist service for dispo Admission and Anticipated Discharge Date Admission Date: February 14, 2023 Subjective Overnight with some improvement in sleep, however still with some difficulty with getting rest. Slept about 3-4 hours last night. With some right arm pain, lower back pain, no abdominal or chest pain or shortness of breath at this p oint. Review of Systems Review of Systems: All systems reviewed & are unremarkable except as noted in Subjective Physical Exam Constitutional: thin. frail appearing Respiratory: normal respiratory effort, lungs clear to auscultation Cardiovascular: RRR, no murmur, no edema Gastrointestinal (Abdomen): normal bowel sounds, soft, nontender, no hepatosplenomegaly Skin: no rashes, warm and dry Psychiatric: alert and oriented, mild confusion at times but redirectable Genitourinary: Roldan draining clear orange/red urine Results & Data Results & Data Vital Signs (Past 12 Hours) Vital Signs Temp Pulse Pulse Resp BP Pulse Ox O2 Del Method 02/16/23 07:38 36.8 C 93 H 18 115/70 96 Room Air 02/15/23 22:03 90 02/16/23 02:35 36.8 C 114 H 18 139/70 98 Room Air 02/15/23 22:48 36.6 C 74 18 95/55 L 95 Room Air PG Care Time/CCT Total # of Minutes Spent Total Time Spent with Patient: Total time spent is greater than 50% in coordination of care (as documented) at patient's floor/unit and/or counseling patient: Coding Level of Care Code 97377 SUB INP/OBS CARE 3/50MIN Diagnoses Symptomatic anemia D64.9 Prostate cancer metastatic to multiple sites C61 Chronic indwelling Rlodan catheter Z97.8 Thrombocytopenia D69.6 Anxiety F41.9 Severe protein-calorie malnutrition E43 Decreased appetite R63.0 Demand ischemia of myocardium I24.8 UTI (urinary tract infection) due to urinary indwelling Roldan catheter T83.511A; N39.0 Right arm pain M79.601
--- NOTE | 2023-02-16 08:28 | Electrocardiogram Report ---
Test Reason : Blood Pressure : / mmHG Vent. Rate : 080 BPM Atrial Rate : 080 BPM P-R Int : 174 ms QRS Dur : 098 ms QT Int : 424 ms P-R-T Axes : 062 072 059 degrees QTc Int : 489 ms Normal sinus rhythm Normal ECG When compared with ECG of 15-FEB-2023 16:50, No significant change was found Confirmed by Madan Pugh ([id number]) on 02/16/2023 8:28:37 AM Referred By: REFERRED SELF Confirmed By:Madan Pugh
[2023-02-16] MEDS: dexAMETHasone 4 MG TAB PO SCH ×2 (09:08→20:04)
[2023-02-16] MEDS: DOCUSATE SODIUM/SENNA 50/8.6MG TAB PO SCH (09:08)
[2023-02-16] MEDS: PHENAZOPYRIDINE HCL 200 MG TAB PO SCH ×3 (09:08→20:04)
[2023-02-16] MEDS: busPIRone 5 MG TAB PO SCH ×2 (09:08→20:03)
[2023-02-16] MEDS: POLYETHYLENE (MIRALAX) 17 GM PACK PO SCH (09:08)
[2023-02-16] MEDS: cefTRIAXone SODIUM 2,000 MG in DEXTROSE 5% 50 ML IV SCH (09:18)
[2023-02-16] MEDS: BICALUTAMIDE 50 MG TAB PO SCH (12:42)
[2023-02-16] MEDS: LORazepam 0.5 MG TAB PO SCH (20:04)
[2023-02-16] MEDS: MELATONIN 3 MG TAB PO SCH (20:04)
[2023-02-17] MEDS: CHECK fentaNYL PATCH PLACEMENT SCH ×4 (00:16→23:21)
[2023-02-17] MEDS: MoRPHine SULFATE 10 MG/0.5 ML UDP PO PRN ×6 (01:31→23:10)
--- NOTE | 2023-02-17 07:55 | Hospitalist Progress Note ---
Date of Service February 17, 2023 Assessment & Plan (1) Metabolic encephalopathy: Plan: 4/2 with erratic behavior overnight, did not sleep much, redirectable but quickly forgets conversations, no focal neurologic deficits No fevers overnight, no significant metabolic derangement, on appropriate Abx for UTI; most suspicious of delirium 2/2 metastatic cancer, anemia, prolonged hospitalization (in patient with some confusion at baseline) No metastases or other acute pathologies noted on CT Head this admission Delirium precautions (2) Symptomatic anemia: Plan: - Presented with a hemoglobin of 5.[address] depressions on EKG, troponin peaked in 300s and has since downtrended - Peripheral smear showed many nucleated RBCs and bone marrow involvement with prostate cancer versus myelodysplasia - Reticulocyte count, haptoglobin, total bilirubin, LDH, and fibrinogen elevated, suggesting some element of hemolysis, patient is on dexamethasone chronically - Anemia of blood loss with chronic hematuria from prostate cancer - Likely has bone marrow involvement from his metastatic prostate cancer given his thrombocytopenia - Transfuse hemoglobin as needed to keep above 7 unless symptomatic otherwise; Hgb currently 8.0 this AM, daily monitoring and will likely need intermittent transfusion given bone marrow involvement from metastatic cancer - B12 and ferritin levels high - Hematology/oncology consult placed and appreciate Dr. Sharma's input, case discussed with her 02/16 - Pall care consulted as patient was previously hospice but came to hospital due to feeling so unwell despite conservative interventions at home - After discussion with the patient, hematology, patient's social supports, 02/18 will receive degarelix 240 mg loading dose while inpatient, to start bicalutamide 50 mg p.o. daily for palliative cancer treatment and can reconsider if patient's goals of care changes with ongoing evals by myself, Oncology, and Palliative care. Patient is aware that his cancer is progressive and metastatic, but wants to see if treatment provides any improvement in his symptoms and worsening cell counts -PT and OT evaluations ordered given that patient will no longer be on hospice to determine functional safety for home, recommending wheelchair with assistance by home care providers for all transfers and ambulation (3) Prostate cancer metastatic to multiple sites: Plan: -Patient with known metastatic prostate cancer with mets to the bones and lymph nodes -Alkaline phosphatase severely elevated in the 800-1000 range suggesting bony metastasis -PSA was noted to be 4600 in November 2022. 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 3 times daily for painful bladder spasms -Maintain chronic Roldan catheter -Treating UTI with ceftriaxone, pansensitive E. coli, ceftriaxone while admitted with transition to oral on discharge (complete Abx on 02/24) -Case management to assist with arranging palliative care services outpatient for pain management given patient will no longer be on hospice care (4) Chronic indwelling Roldan catheter: Plan: -Exchanged on 02/14 by urology -With ongoing traumatic hematuria and bladder spasms -Pyridium for pain (5) Thrombocytopenia: Plan: -With hematuria and petechiae -Transfused platelets on 02/14, plts unfortunately low 16 today, appreciate heme/onc recs, no platelet transfusion at this time -Follow CBC (6) Anxiety: Plan: -Continue lorazepam as needed with dose at nighttime for sleep given significant anxiety in-hospital, as well as melatonin for sleep -Cont BuSpar (7) Severe protein-calorie malnutrition: Plan: severe protein-calorie malnutrition Secondary to metastatic cancer Supplement dietary needs as able with nutritional supplements, Marinol, and encourage PO intake (8) Decreased appetite: Plan: Continue Marinol (9) Demand ischemia of myocardium: Plan: Troponin peaked and downtrending. Presented with chest pain and ST depressions in inferior and anterolateral leads in the setting of severe anemia Chest pain is now resolved with transfusion of PRBCs Echocardiogram with preserved EF and no wall motion abnormalities Appreciate cardiology consultation this admission-recommend conservative management. No statin therapy due to overall poor prognosis No aspirin therapy due to thrombocytopenia and bleeding (10) UTI (urinary tract infection) due to urinary indwelling Roldan catheter: Plan: Rocephin for complicated UTI, antibiotics to complete 02/24/2023 (11) Right arm pain: Plan: With complaints of right shoulder/arm pain for the last several months, worsening over the last week or so CT for cancer burden notes findings in right humeral neck suggestive of impending fracture Case discussed peripherally with orthopedics, recommended sling and outpatient follow-up Unfortunately this makes ambulation even more difficult, standard walker no longer an option for ambulation, wheelchair ordered Plan DVT prophylaxis - avoid anticoagulation due to ongoing bleeding; SCDs Disposition - ultimately trying to get patient home to familiar surroundings with caregiver support, hopefully for discharge home tomorrow with wheelchair, short course anxiety/pain medications to be assumed by oncology/palliative care/PCP on discharge Admission and Anticipated Discharge Date Admission Date: February 14, 2023 Subjective Overnight with erratic behavior, did not sleep much, this early afternoon however is much more alert and oriented, periods of confusion that are easily redirectable by either hospital staff or patient's friend who is in the room. With some intermittent right upper arm pain, no chest or abdominal pain, no shortness of breath. Not feeling lightheaded or dizzy. Review of Systems Review of Systems: All systems reviewed & are unremarkable except as noted in Subjective Physical Exam Constitutional: thin. frail appearing Respiratory: normal respiratory effort, lungs clear to auscultation Cardiovascular: RRR, no murmur, no edema Gastrointestinal (Abdomen): normal bowel sounds, soft, nontender, no hepatosplenomegaly Skin: Petechiae noted on bilateral arms/hands Psychiatric: alert and oriented, mild confusion at times but redirectable Genitourinary: Roldan draining clear red urine Results & Data Results & Data Vital Signs (Past 12 Hours) Vital Signs Temp Pulse Pulse Resp BP Pulse Ox O2 Del Method 02/17/23 07:45 36.5 C 95 H 17 130/73 95 Room Air 02/17/23 02:19 36.6 C 104 H 18 138/79 96 Room Air 02/16/23 22:05 94 H 02/16/23 22:45 36.7 C 93 H 18 127/75 98 Room Air 02/16/23 20:00 Room Air PG Care Time/CCT Total # of Minutes Spent Total Time Spent with Patient: Total time spent is greater than 50% in coordination of care (as documented) at patient's floor/unit and/or counseling patient: Coding Level of Care Code 45817 SUB INP/OBS CARE 3/50MIN Diagnoses Metabolic encephalopathy G93.41 Symptomatic anemia D64.9 Prostate cancer metastatic to multiple sites C61 Chronic indwelling Roldan catheter Z97.8 Thrombocytopenia D69.6 Anxiety F41.9 Severe protein-calorie malnutrition E43 Decreased appetite R63.0 Demand ischemia of myocardium I24.8 UTI (urinary tract infection) due to urinary indwelling Roldan catheter T83.511A; N39.0 Right arm pain M79.601
[2023-02-17] MEDS: POLYETHYLENE (MIRALAX) 17 GM PACK PO SCH (08:37)
[2023-02-17] MEDS: DOCUSATE SODIUM/SENNA 50/8.6MG TAB PO SCH (08:37)
[2023-02-17] MEDS: fentaNYL 100 MCG/HR TDSY TD SCH (08:38)
[2023-02-17] MEDS: BICALUTAMIDE 50 MG TAB PO SCH (08:39)
[2023-02-17] MEDS: busPIRone 5 MG TAB PO SCH ×2 (08:39→20:16)
[2023-02-17] MEDS: dexAMETHasone 4 MG TAB PO SCH ×2 (08:39→20:15)
[2023-02-17 08:48] LABS: Albumin Globulin Ratio 1.1 (0.9-2); Albumin Level 3.1 gm/dl (3.4-5.0); BUN Creatinine Ratio 31.8 (10-20); Bilirubin,Total 1.1 mg/dl (0.2-1.0); Calcium 9.3 mg/dl (8.6-10.3); Creatinine Clr Calc Pharmacy 97.5 ml/min; Est GFR (African American) 105.2 ml/min; Est GFR (Non-African American) 90.8 ml/min; Globulin 2.7 gm/dl (2.5-4.0); Potassium 4.1 mmol/L (3.5-5.1); Total Protein 5.8 gm/dl (6.0-8.3)
[2023-02-17 09:12] LABS: Hematocrit (blood only) 24.9 % (42.0-52.0); Mean Corpuscular Hemoglobin 29.2 pg (25.0-34.0); Mean Corpuscular Hgb Conc 32.1 g/dL (32.0-36.0); Mean Corpuscular Volume 90.9 fL (80.0-100.0); Mean Platelet Volume 10.4 fL (9.4-12.4); Nucleated RBC # (auto) 1.02 K/uL (0-0.12); Nucleated RBC % (auto) 9.6 %; Platelet Count 16 K/uL (130-400); RDW Coefficient of Variation 17.5 % (11.5-14.5); RDW Standard Deviation 55.9 fL (36.4-46.3); Red Blood Count 2.74 M/uL (4.70-6.10); White Blood Count 10.66 K/ul (4.8-10.8)
[2023-02-17 09:25] LABS: ANC (manual) 7.25 K/uL (1.4-6.5); Blast # (manual) 0.11 K/uL (0-0); Blast Cells % (manual) 1 %; Eosinophils # (manual) 0.21 K/uL (0-0.50); Eosinophils % (manual) 2 %; Lymphocytes % (manual) 15 %; Metamyelocytes # (manual) 0.85 K/uL (0-0); Metamyelocytes % (manual) 8 %; Monocytes # (manual) 0.64 K/uL (0.11-0.59); Monocytes % (manual) 6 %; Myelocytes # (manual) 0.21 K/uL (0-0); Myelocytes % (manual) 2 %; Neutrophils # (manual) 7.25 K/uL (1.40-6.50); Neutrophils % (manual) 68 %; Polychromasia 1+; Tear Drop Cells 2+
[2023-02-17] MEDS: cefTRIAXone SODIUM 2,000 MG in DEXTROSE 5% 50 ML IV SCH (09:30)
[2023-02-17] MEDS: PHENAZOPYRIDINE HCL 200 MG TAB PO SCH ×3 (09:31→20:16)
[2023-02-17] MEDS: MELATONIN 3 MG TAB PO SCH (20:16)
[2023-02-17] MEDS: LORazepam 0.5 MG TAB PO SCH (20:18)
[2023-02-18] MEDS: CHECK fentaNYL PATCH PLACEMENT SCH ×3 (08:33→23:48)
[2023-02-18] MEDS: BICALUTAMIDE 50 MG TAB PO SCH (08:39)
[2023-02-18] MEDS: DOCUSATE SODIUM/SENNA 50/8.6MG TAB PO SCH (08:39)
[2023-02-18] MEDS: dexAMETHasone 4 MG TAB PO SCH ×2 (08:39→22:48)
[2023-02-18] MEDS: busPIRone 5 MG TAB PO SCH ×2 (08:39→22:49)
[2023-02-18] MEDS: POLYETHYLENE (MIRALAX) 17 GM PACK PO SCH (08:39)
[2023-02-18] MEDS: PHENAZOPYRIDINE HCL 200 MG TAB PO SCH ×3 (08:39→22:48)
[2023-02-18] MEDS: MoRPHine SULFATE 10 MG/0.5 ML UDP PO PRN ×2 (08:43→15:57)
[2023-02-18 08:44] LABS: Hematocrit (blood only) 25.3 % (42.0-52.0); Hemoglobin 8.2 g/dl (14.0-18.0); Mean Corpuscular Hemoglobin 29.5 pg (25.0-34.0); Mean Corpuscular Hgb Conc 32.4 g/dL (32.0-36.0); Nucleated RBC # (auto) 1.32 K/uL (0-0.12); Platelet Count 13 K/uL (130-400); RDW Coefficient of Variation 17.7 % (11.5-14.5); Red Blood Count 2.78 M/uL (4.70-6.10); White Blood Count 12.05 K/ul (4.8-10.8)
[2023-02-18] MEDS ORDERED: DEGARELIX ACETATE 240 MG SC SCH (09:00)
[2023-02-18] MEDS: cefTRIAXone SODIUM 2,000 MG in DEXTROSE 5% 50 ML IV SCH (10:30)
--- NOTE | 2023-02-18 16:12 | Hospitalist Progress Note ---
Date of Service February 18, 2023 Assessment & Plan (1) Metabolic encephalopathy: Plan: 4/2 with erratic behavior overnight, did not sleep much, redirectable but quickly forgets conversations, no focal neurologic deficits No fevers overnight, no significant metabolic derangement, on appropriate Abx for UTI; most suspicious of delirium 2/2 metastatic cancer, anemia, prolonged hospitalization (in patient with some confusion at baseline) No metastases or other acute pathologies noted on CT Head this admission Delirium precautions, hopefully discharge to home environment tomorrow (2) Symptomatic anemia: Plan: - Anemia of blood loss with chronic hematuria from prostate cancer - Presented with a hemoglobin of 5.[address] depressions on EKG, troponin peaked in 300s and has since downtrended - Peripheral smear showed many nucleated RBCs and bone marrow involvement with prostate cancer versus myelodysplasia - Reticulocyte count, haptoglobin, total bilirubin, LDH, and fibrinogen elevated, suggesting some element of hemolysis, improving, patient is on dexamethasone chronically for bone pain - Likely has bone marrow involvement from his metastatic prostate cancer given his thrombocytopenia - B12 and ferritin levels high - Transfuse hemoglobin as needed to keep above 7 unless symptomatic otherwise; Hgb currently 8.2 this AM, daily monitoring and will likely need intermittent transfusion given bone marrow involvement from metastatic cancer - Hematology/oncology consult placed and appreciate Dr. Sharma's input, case discussed with her 02/16 - After discussion with the patient, hematology, patient's social supports, will receive degarelix 240 mg loading dose after discharge, and started bicalutamide 50 mg p.o. daily for palliative cancer treatment. Patient is aware that his cancer is progressive and metastatic, but wants to see if treatment provides any improvement in his symptoms and worsening cell counts -PT and OT evaluations ordered given that patient will no longer be on hospice to determine functional safety for home, recommending wheelchair with assistance by home care providers for all transfers and ambulation -Working on home health pall care for pain management purposes to partner with PCPs Dr. Hill and Reinier Anaya PA-C, and Oncology Dr. Sharma (3) Prostate cancer metastatic to multiple sites: Plan: -Patient with known metastatic prostate cancer with mets to the bones and lymph nodes -Alkaline phosphatase severely elevated in the 800-1000 range suggesting bony metastasis -PSA was noted to be 4600 in November 2022. 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 3 times daily for painful bladder spasms -Maintain chronic Roldan catheter -Pansensitive E. coli UTI, transitioning ceftriaxone to Keflex q6h (complete Abx on 02/24) -Case assisting with arranging palliative care services outpatient for pain management given patient will no longer be on hospice care (4) Chronic indwelling Roldan catheter: Plan: -Exchanged on 02/14 by urology -With ongoing hematuria and bladder spasms, Pyridium for pain (5) Thrombocytopenia: Plan: -With hematuria and petechiae -Transfused platelets on 02/14, plts unfortunately low 13 today, appreciate heme/onc recs, no platelet transfusion at this time -Follow CBC (6) Anxiety: Plan: -Continue lorazepam as needed with dose at nighttime for sleep given significant anxiety in-hospital, as well as melatonin for sleep -Cont BuSpar (7) Severe protein-calorie malnutrition: Plan: severe protein-calorie malnutrition Secondary to metastatic cancer Supplement dietary needs as able with nutritional supplements, Marinol, and encourage PO intake (8) Decreased appetite: Plan: Continue Marinol (9) Demand ischemia of myocardium: Plan: Troponin peaked and downtrending. Presented with chest pain and ST depressions in inferior and anterolateral leads in the setting of severe anemia Chest pain resolved with transfusion of PRBCs Echocardiogram with preserved EF and no wall motion abnormalities Appreciate cardiology consultation this admission-recommend conservative management, however no statin therapy due to overall poor prognosis No aspirin therapy due to thrombocytopenia and bleeding (10) UTI (urinary tract infection) due to urinary indwelling Roldan catheter: Plan: Keflex as described above (11) Right arm pain: Plan: With complaints of right shoulder/arm pain for the last several months, worsening over the last week or so CT for cancer burden notes findings in right humeral neck suggestive of impending fracture Case discussed peripherally with orthopedics, recommended sling and outpatient follow-up with Orthopedics Unfortunately this makes ambulation even more difficult, standard walker no longer an option for ambulation, wheelchair ordered Plan DVT prophylaxis - avoid anticoagulation due to ongoing bleeding; SCDs Disposition - hopefully discharge home tomorrow if can arrange outpatient management of pain medications with palliative care services. Case discussed with patient and patient's social support, as well as PCP Dr. Hill today Admission and Anticipated Discharge Date Admission Date: February 14, 2023 Subjective No acute events overnight, feels "bored" due to cable being out, is itching to go home, no chest or abdominal pain. Review of Systems Review of Systems: All systems reviewed & are unremarkable except as noted in Subjective Physical Exam Constitutional: thin. frail appearing Respiratory: normal respiratory effort, lungs clear to auscultation Cardiovascular: RRR, no murmur, no edema Gastrointestinal (Abdomen): normal bowel sounds, soft, nontender, no hepatosplenomegaly Skin: Petechiae noted on bilateral arms/hands Psychiatric: alert and oriented, mild confusion at times but redirectable Genitourinary: Roldan draining clear light red urine Results & Data Results & Data Vital Signs (Past 12 Hours) Vital Signs Temp Pulse Pulse Resp BP BP Pulse Ox 02/18/23 15:23 36.5 C 78 18 120/67 94 02/18/23 14:01 70 02/18/23 11:03 36.5 C 81 18 131/76 96 02/18/23 07:30 02/18/23 07:29 36.7 C 81 20 121/73 95 02/18/23 06:03 86 O2 Del Method 02/18/23 15:23 Room Air 02/18/23 14:01 02/18/23 11:03 Room Air 02/18/23 07:30 Room Air 02/18/23 07:29 Room Air 02/18/23 06:03 PG Care Time/CCT Total # of Minutes Spent Total Time Spent with Patient: Total time spent is greater than 50% in coordination of care (as documented) at patient's floor/unit and/or counseling patient: Coding Level of Care Code 03623 SUB INP/OBS CARE 3/50MIN Diagnoses Metabolic encephalopathy G93.41 Symptomatic anemia D64.9 Prostate cancer metastatic to multiple sites C61 Chronic indwelling Roldan catheter Z97.8 Thrombocytopenia D69.6 Anxiety F41.9 Severe protein-calorie malnutrition E43 Decreased appetite R63.0 Demand ischemia of myocardium I24.8 UTI (urinary tract infection) due to urinary indwelling Roldan catheter T83.511A; N39.0 Right arm pain M79.601
[2023-02-18] MEDS ORDERED: MoRPHine SULFATE 10 MG/0.5 ML UDP PO STA (22:39)
[2023-02-18] MEDS: MELATONIN 3 MG TAB PO SCH (22:48)
[2023-02-18] MEDS: LORazepam 0.5 MG TAB PO SCH (22:48)
[2023-02-19] MEDS ORDERED: MoRPHine SULFATE 10 MG/0.5 ML UDP PO STA (03:15)
[2023-02-19] MEDS: CHECK fentaNYL PATCH PLACEMENT SCH (08:07)
[2023-02-19] MEDS: PHENAZOPYRIDINE HCL 200 MG TAB PO SCH ×2 (08:07→13:17)
[2023-02-19] MEDS: dexAMETHasone 4 MG TAB PO SCH (08:07)
[2023-02-19] MEDS: busPIRone 5 MG TAB PO SCH (08:07)
[2023-02-19] MEDS: cephALEXin 500 MG CAP PO SCH ×2 (08:08→12:47)
[2023-02-19] MEDS: BICALUTAMIDE 50 MG TAB PO SCH (08:08)
[2023-02-19] MEDS: POLYETHYLENE (MIRALAX) 17 GM PACK PO SCH (08:12)
[2023-02-19] MEDS: DOCUSATE SODIUM/SENNA 50/8.6MG TAB PO SCH (08:12)
--- NOTE | 2023-02-19 09:56 | Hospitalist Progress Note ---
Date of Service February 19, 2023 Assessment & Plan (1) Metabolic encephalopathy: Plan: 4/2 with erratic behavior overnight, did not sleep much, redirectable but quickly forgets conversations, no focal neurologic deficits No fevers overnight, no significant metabolic derangement, on appropriate Abx for UTI; most suspicious of delirium 2/2 metastatic cancer, anemia, prolonged hospitalization (in patient with some confusion at baseline) No metastases or other acute pathologies noted on CT Head this admission Delirium precautions, hopefully discharge to home environment tomorrow (2) Symptomatic anemia: Plan: - Anemia of blood loss with chronic hematuria from prostate cancer - Presented with a hemoglobin of 5.[address] depressions on EKG, troponin peaked in 300s and has since downtrended - Peripheral smear showed many nucleated RBCs and bone marrow involvement with prostate cancer versus myelodysplasia - Reticulocyte count, haptoglobin, total bilirubin, LDH, and fibrinogen elevated, suggesting some element of hemolysis, improving, patient is on dexamethasone chronically for bone pain - Likely has bone marrow involvement from his metastatic prostate cancer given his thrombocytopenia - B12 and ferritin levels high - Transfuse hemoglobin as needed to keep above 7 unless symptomatic otherwise; Hgb currently 8.2 this AM, daily monitoring and will likely need intermittent transfusion given bone marrow involvement from metastatic cancer - Hematology/oncology consult placed and appreciate Dr. Sharma's input, case discussed with her 02/16 - After discussion with the patient, hematology, patient's social supports, will receive degarelix 240 mg loading dose after discharge, and started bicalutamide 50 mg p.o. daily for palliative cancer treatment. Patient is aware that his cancer is progressive and metastatic, but wants to see if treatment provides any improvement in his symptoms and worsening cell counts -PT and OT evaluations ordered given that patient will no longer be on hospice to determine functional safety for home, recommending wheelchair with assistance by home care providers for all transfers and ambulation -Working on home health pall care for pain management purposes to partner with PCPs Dr. Hill and Reinier Anaya PA-C, and Oncology Dr. Sharma (3) Prostate cancer metastatic to multiple sites: Plan: -Patient with known metastatic prostate cancer with mets to the bones and lymph nodes -Alkaline phosphatase severely elevated in the 800-1000 range suggesting bony metastasis -PSA was noted to be 4600 in November 2022. 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 3 times daily for painful bladder spasms -Maintain chronic Roldan catheter -Pansensitive E. coli UTI, transitioning ceftriaxone to Keflex q6h (complete Abx on 02/24) -Case assisting with arranging palliative care services outpatient for pain management given patient will no longer be on hospice care (4) Chronic indwelling Roldan catheter: Plan: -Exchanged on 02/14 by urology -With ongoing hematuria and bladder spasms, Pyridium for pain (5) Thrombocytopenia: Plan: -With hematuria and petechiae -Transfused platelets on 02/14, plts unfortunately low 13 today, appreciate heme/onc recs, no platelet transfusion at this time -Follow CBC (6) Anxiety: Plan: -Continue lorazepam as needed with dose at nighttime for sleep given significant anxiety in-hospital, as well as melatonin for sleep -Cont BuSpar (7) Severe protein-calorie malnutrition: Plan: severe protein-calorie malnutrition Secondary to metastatic cancer Supplement dietary needs as able with nutritional supplements, Marinol, and encourage PO intake (8) Decreased appetite: Plan: Continue Marinol (9) Demand ischemia of myocardium: Plan: Troponin peaked and downtrending. Presented with chest pain and ST depressions in inferior and anterolateral leads in the setting of severe anemia Chest pain resolved with transfusion of PRBCs Echocardiogram with preserved EF and no wall motion abnormalities Appreciate cardiology consultation this admission-recommend conservative management, however no statin therapy due to overall poor prognosis No aspirin therapy due to thrombocytopenia and bleeding (10) UTI (urinary tract infection) due to urinary indwelling Roldan catheter: Plan: Keflex as described above (11) Right arm pain: Plan: With complaints of right shoulder/arm pain for the last several months, worsening over the last week or so CT for cancer burden notes findings in right humeral neck suggestive of impending fracture Case discussed peripherally with orthopedics, recommended sling and outpatient follow-up with Orthopedics Unfortunately this makes ambulation even more difficult, standard walker no longer an option for ambulation, wheelchair ordered Plan DVT prophylaxis - avoid anticoagulation due to ongoing bleeding; SCDs Disposition - hopefully discharge home tomorrow if can arrange outpatient management of pain medications with palliative care services. Case discussed with patient and patient's social support, as well as PCP Dr. Hill today Admission and Anticipated Discharge Date Admission Date: February 14, 2023 Results & Data Results & Data Vital Signs (Past 12 Hours) Vital Signs Temp Pulse Pulse Pulse Resp BP Pulse Ox 02/19/23 09:47 64 02/19/23 07:40 36.4 C L 77 18 121/70 93 02/19/23 04:48 59 L 02/19/23 03:23 36.7 C 76 18 99/67 L 96 02/19/23 00:04 02/18/23 23:56 78 02/18/23 23:26 36.8 C 87 20 147/76 H 96 O2 Del Method 02/19/23 09:47 02/19/23 07:40 Room Air 02/19/23 04:48 02/19/23 03:23 Room Air 02/19/23 00:04 Room Air 02/18/23 23:56 02/18/23 23:26 Room Air PG Care Time/CCT Total # of Minutes Spent Total Time Spent with Patient: Total time spent is greater than 50% in coordination of care (as documented) at patient's floor/unit and/or counseling patient: Coding Diagnoses Metabolic encephalopathy G93.41 Symptomatic anemia D64.9 Prostate cancer metastatic to multiple sites C61 Chronic indwelling Roldan catheter Z97.8 Thrombocytopenia D69.6 Anxiety F41.9 Severe protein-calorie malnutrition E43 Decreased appetite R63.0 Demand ischemia of myocardium I24.8 UTI (urinary tract infection) due to urinary indwelling Roldan catheter T83.511A; N39.0 Right arm pain M79.601
--- NOTE | 2023-02-19 14:24 | Discharge Summary ---
Discharge Summary Date of Service February 19, 2023 Admission HPI Per Admitting Provider The patient is a 63-year-old male with a past medical history including metastatic prostate cancer, anxiety, chronic pain syndrome, agitation, chronic indwelling Roldan catheter due to urinary obstruction and decreased appetite. Patient reports that he had intermittent right elbow pain for months, and has had a negative work-up to this point. The substernal chest pain he developed just prior to arrival, was was severe, and did get significant improvement with treatment in ED. Significant laboratories: WBC 13.1, hemoglobin 5.4, hematocrit 16.6, platelets 19, sodium 130, creatinine 1.25, glucose 172, INR 1.3, total bilirubin 1.5, troponin 186.5, alkaline phosphatase 962. Urinalysis was positive for infection COVID-19 testing was negative Hemoccult stools negative in the ED Admission Exam Per Admitting Provider The patient is awake, alert and oriented 3, well developed and well nourished, normocephalic and atraumatic, lying in bed and in no acute distress. HEENT--PERRL, EOMI, mucous membranes and oropharynx dry. Neck--supple. No JVD. No bruits. Thyroid normal, trachea midline, no adenopathy. Heart--normal S1 and S2. No murmurs, rubs or gallops. Lungs--clear bilaterally, no respiratory distress, no accessory muscle use. Abdomen--normal bowel sounds and soft. Nontender. Nondistended Extremities--no cyanosis or clubbing. No edema. Dermatologic--normal skin turgor, normal color, no abnormal lymph nodes, no rash. Neurologic--cranial nerves II through XII grossly intact. Rheumatologic--normal range of motion. Psychiatric--normal affect. Principal Dx & Hospital Course #1 = Principal Diagnosis (1) Metabolic encephalopathy: (2) Symptomatic anemia: (3) Prostate cancer metastatic to multiple sites: (4) Chronic indwelling Roldan catheter: (5) Thrombocytopenia: (6) Anxiety: (7) Severe protein-calorie malnutrition: (8) Decreased appetite: (9) Demand ischemia of myocardium: (10) UTI (urinary tract infection) due to urinary indwelling Roldan catheter: (11) Right arm pain: (12) Ambulatory dysfunction: Metabolic encephalopathy: Resolved No fevers, no significant metabolic derangement, on appropriate Abx for UTI; most suspicious of delirium 2/2 metastatic cancer, anemia, prolonged hospi talization (in patient with some confusion at baseline) No metastases or other acute pathologies noted on CT Head this admission Anticipate improvement with this further when he returns to home environment today Symptomatic anemia: -Presenting hemoglobin of 5.4; anemia of blood loss with chronic hematuria from prostate cancer, some element of hemolysis given elevated reticulocyte count/haptoglobin/total bilirubin/LDH/fibrinogen all of which improved, likely element of bone marrow involvement with prostate cancer noted on peripheral smear with many nucleated RBCs. B12 and ferritin levels high. Received total of 4 units of blood this admission, hemoglobin of 8.2 on 02/18, will need close monitoring and transfusion, repeat CBC tomorrow with care to patient's family doctor and oncologist. - Hematology/oncology consult placed and appreciate Dr. Sharma's input, will have close follow-up and patient may need transfusions at times due to thrombocytopenia/anemia Prostate cancer metastatic to multiple sites: -Patient with known metastatic prostate cancer with mets to the bones and lymph nodes -Alkaline phosphatase severely elevated in the 800-1000 range suggesting bony metastasis -PSA was noted to be 4600 in November 2022. He has not received any treatment for his cancer at this point, and PSA continues to be severely elevated -He was on hospice [employer] and using opioid therapy for pain control, now transitioned to attempt treatment, discharged with back elevated in 50 mg daily, will follow-up with oncology as stated above -Consult to Urology appreciated for catheter exchange, given ongoing hematuria and pain -Cont Pyridium 200 Mg p.o. 3 times daily for painful bladder spasms -Maintain chronic Roldan catheter -Pansensitive E. coli UTI, transitioned ceftriaxone to Keflex q6h (completed total of 7 days of antibiotics -[facility] will evaluate patient this week, to assist oncology/family practice with- pain management -Continue Vicodin/fentanyl/oxycodone/Ativan/dexamethasone for bony pains secondary to metastatic cancer Thrombocytopenia: -With hematuria and petechiae -Transfused platelets on 02/14, plts unfortunately low 13 on 02/18, did advise poppy ent to have platelet transfusion prior to discharge but patient declined wishing to go home as soon as possible, follow-up with oncology -CBC Chronic indwelling Roldan catheter: -Exchanged on 3/30 by urology -With ongoing hematuria and bladder spasms, Pyridium for pain Anxiety: -Continue lorazepam as needed at home -Cont BuSpar Severe protein-calorie malnutrition: Secondary to metastatic cancer Continue to supplement dietary needs as able at home with nutritional supplements, Marinol, and encourage p.o. intake Demand ischemia of myocardium: Troponin peaked and downtrending. Presented with chest pain and ST depressions in inferior and anterolateral leads in the setting of severe anemia Chest pain resolved with transfusion of PRBCs Echocardiogram with preserved EF and no wall motion abnormalities Appreciate cardiology consultation this admission-recommend conservative management, however no statin therapy due to overall poor prognosis No aspirin therapy due to thrombocytopenia and bleeding UTI (urinary tract infection) due to urinary indwelling Roldan catheter: Antibiotics as described above Right arm pain: With complaints of right shoulder/arm pain for the last several months, worsening over the last week or so CT for cancer burden notes findings in right humeral neck suggestive of impending fracture Case discussed peripherally with orthopedics, recommended sling and outpatient follow-up with Orthopedics scheduled Unfortunately this makes ambulation even more difficult, standard walker no longer an option for ambulation, wheelchair ordered Ambulatory dysfunction: Secondary to chronic deconditioning, metastatic prostate cancer With right arm fracture impeding use of walker/cane Wheelchair recommended by physical and Occupational Therapy. Patient needs w heelchair to perform mobility related activities of daily living. A cane or walker will not sufficiently resolve mobility limitations. Patient will have a caregiver who can assist with propelling wheelchair and can assist with transfers in and out of wheelchair. Discharge Exam Constitutional WD/WN, vitals as above Respiratory normal respiratory effort, lungs clear to auscultation Cardiovascular RRR, no murmur, no edema Psychiatric A+Ox3, euthymic affect Genitourinary Roldan draining clear red urine Updated Medication List Medication Instructions Recorded Confirmed Type fentanyl 100 mcg/hr transdermal 1 patch transdermal Q72H 01/01/23 02/13/23 History patch buspirone 5 mg tablet 5 mg PO BID 01/24/23 02/13/23 History dronabinol 2.5 mg capsule (Marinol) 2.5 mg PO BID 30 days #60 caps 01/24/23 02/13/23 Rx acetaminophen 650 mg rectal 650 mg NM Q4 PRN Fever Or Pain 02/13/23 02/13/23 History suppository hyoscyamine sulfate 0.125 mg tablet 0.125 mg sublingual Q4 PRN 02/13/23 02/13/23 History terminal secretions lorazepam 1 mg tablet 2 mg sublingual .Q15 MIN PRN 02/13/23 02/13/23 History Seizures promethazine 12.5 mg tablet 12.5 mg PO Q8 PRN Nausea 02/13/23 02/13/23 History bicalutamide 50 mg tablet 50 mg PO QAM 30 days #30 tabs 02/19/23 Rx dexamethasone 2 mg tablet 2 mg PO BID 10 days #20 tabs 02/19/23 Rx hydrocodone 7.5 mg-acetaminophen 1 tab PO Q6 PRN pain 5 days #20 02/19/23 Rx 325 mg tablet tabs lorazepam 1 mg tablet 0.5 mg PO Q6H PRN 02/19/23 Rx restlessness/insomnia #20 tabs morphine concentrate 100 mg/5 mL 10 mg (0.5 mL) PO Q4H PRN 02/19/23 Rx (20 mg/mL) oral solution breakthrough pain, moderate #30 mL phenazopyridine 200 mg tablet 200 mg PO TID 5 days #15 tabs 02/19/23 Rx (Pyridium) Hospital Stay Data Consultations 02/14/23 00:33 Consult Cardiology Routine 02/14/23 01:13 ED Decision to Admit Stat 02/14/23 09:22 Consult Urology Routine 02/14/23 19:09 Consult Oncology Routine 02/14/23 19:13 Consult Palliative Care Routine Diagnostic Imagining Performed 02/14/23 19:09 CT abd pelvis IV con only Routine CT chest diagnostic w con Routine 02/14/23 19:19 CT head/brain wo con Routine Pending Results Patient Have Any Pending Studies at Discharge: No Discharge Instructions Given to Patient (Per Discharging Provider) You are admitted to the hospital for management of severe anemia and urinary tract infection. Because of your cancer, your blood cells do not function properly and you are having bleeding from your prostate area. You were given blood transfusions with improvement in your blood counts, but on day of discharge your blood count was stable at 8.2. This will need to be monitored closely by the oncologist. Because your platelets are low as well, the cells that help prevent bleeding are not functioning properly. You were started on medication for your cancer, called bicalutamide, please see the instructions below with how to take this. Please keep your close follow-up with Dr. Sharma, and call her office if you have any acute concerns. Dr. Hill will also be helpful for those concerns. During your admission you had CT imaging of your body, and you were found to have an area in your right arm that was almost a fracture, which explains all of the pain you have been having in that area. You are put in a sling, which is recommended for you to stay in unless you are lying in bed. You will have follow-up with orthopedics, urology, and oncology for your ongoing medical problems. Their information is provided in the above paperwork, please call their offices for appointments if you have not been contacted by the middle of this week. I have sent short course prescription of your Roxanol, Vicodin, dexamethasone, and Ativan to your preferred pharmacy. If there is an issue with picking up your medications please call the hospital. You can take the Ativan every 6 hours as needed for anxiety, and of the Roxanol every 4 hours as needed for pain. You can take the Vicodin 4 times a day, and your fentanyl patches every 3 days as you were before hospitalization. Dr. Hill and Dr. Sharma will assume care of this medication moving forward with the help of palliative care services; please call their offices to get this arranged this week so that you can have more medication prescribed before you run out. Due to your low blood counts, I have ordered lab work to be done on at a lab of your choice. These labs should also be sent to your family doctor and the oncologist. A prescription for a wheelchair was made, as due to your difficulty with walking as well as your right arm sling, a walker was not felt to be safe for you. You should have help with all transfers out of bed, out of chairs, etc. Dr. Sharma's office will call about getting you set up for follow up and your medications. She will also monitor your blood counts. Please call your family doctor if you have any concerns with regard to your health, including difficulty with management of your pain. If these concerns are emergent or you are concerned for your safety, please report to the hospital for evaluation. Total Time Total Time Spent Total Time Spent (In Minutes): 45 minutes Coding Level of Care Code 95250 INP/OBS DISCH >30 MIN Diagnoses Metabolic encephalopathy G93.41 Symptomatic anemia D64.9 Prostate cancer metastatic to multiple sites C61 Chronic indwelling Roldan catheter Z97.8 Thrombocytopenia D69.6 Anxiety F41.9 Severe protein-calorie malnutrition E43 Decreased appetite R63.0 Demand ischemia of myocardium I24.8 UTI (urinary tract infection) due to urinary indwelling Roldan catheter T83.511A; N39.0 Right arm pain M79.601 Ambulatory dysfunction R26.2
== END 2023-02-19 15:39 | disposition home health service (06) | DRG 722 ==
LOC: ED 23:19 → EDINP 02-14 01:29 → SUATTDRO 02-14 01:29 → 2S 02-14 04:12 → 2W 02-17 15:22